=== PATIENT | male | born 1990 | race Caucasian/White ===

== ENCOUNTER 2016-08-03 22:52 | Inpatient (IN) ==
[2016-08-03 23:25] LABS: Bilirubin,Urine Negative (Negative); Blood,Urine Negative (Negative); Clarity,Urine Clear (Clear); Color,Urine Yellow (Yellow); Glucose,Urine (UA) Normal (Normal); Ketones,Urine Negative (Negative); Leukocyte Esterase,Urine Negative (Negative); Nitrite,Urine Negative (Negative); Protein,Urine Negative (Neg-Trace); Specific Gravity,Urine 1.006 (1.010-1.025); Urobilinogen,Urine Normal (Normal)
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
[2016-08-03 23:31] LABS: Amphetamine Screen,Urine Negative ng/mL (Cutoff=1000); Barbiturate Screen,Urine Negative ng/mL (Cutoff=200); Benzodiazepines Screen,Urine Positive ng/mL (Cutoff=200); Cannabinoid Screen,Urine Negative ng/mL (Cutoff = 50); Cocaine Screen,Urine Negative ng/mL (Cutoff= 300); Opiate Screen,Urine Negative ng/mL (Cutoff=300); Phencyclidine Screen,Urine Negative ng/mL (Cutoff=25)
[2016-08-03 23:34] LABS: Basophils % 0.7 %; Eosinophils # 0.1 K/mcL (0.0-0.6); Eosinophils % 3.6 %; Hematocrit 40.4 % (37.5-50.1); Hemoglobin 13.9 g/dL (12.9-16.9); Immature Platelets 8.5 % (1.1-6.1); Lymphocytes # 1.2 K/mcL (0.6-4.6); Lymphocytes % 42.2 %; Mean Corpuscular HGB Conc 34.4 g/dL (31.6-35.5); Mean Corpuscular Hemoglobin 30.5 pg (28.0-33.3); Mean Corpuscular Volume 88.8 fL (83.0-100.0); Mean Platelet Volume 10.9 fL (9.4-12.4); Monocytes # 0.4 K/mcL (0.0-1.3); Monocytes % 12.7 %; Neutrophils # 1.1 K/mcL (1.6-8.9); Platelet Count 149 K/mcL (140-400); Red Blood Count 4.55 M/mcL (4.19-5.50); Red Cell Distribution Width 13.1 % (11.5-14.5); Segmented Neutrophils % 40.8 %
[2016-08-03 23:46] LABS: BUN/Creatinine Ratio 8 (6-26); Blood Urea Nitrogen 7 mg/dL (8-26); Calcium 9.3 mg/dL (8.6-10.8); Carbon Dioxide 26 mEq/L (19-29); Chloride 106 mEq/L (98-109); Glucose 81 mg/dL (70-99); Osmolality,Calculated 291 (280-300); Potassium 4.2 mEq/L (3.5-4.5); Sodium 142 mEq/L (136-145); eGFR For African Americans > 60 (> 60); eGFR For Non-African Americans > 60 (> 60)
[2016-08-03 23:55] LABS: Platelet Estimate Normal (Normal); Reactive Lymphocytes Present (Not Present)
[2016-08-04 00:19] LABS: Ethanol < 10 mg/dL (0-10); Salicylate < 5.0 mg/dL (15-30)
[2016-08-04] MEDS ORDERED: clonazePAM 0.5 MG TABLET PO ONE (02:10)
[2016-08-04 02:17] LABS: Alanine Aminotransferase 30 Units/L (0-55); Albumin 4.1 g/dL (3.5-5.0); Albumin/Globulin Ratio 1.2 (1.1-2.2); Alkaline Phosphatase 80 Units/L (38-126); Aspartate Amino Transferase 23 Units/L (5-34); Bilirubin,Direct 0.1 mg/dL (0.0-0.5); Bilirubin,Indirect 0.2 mg/dL (0.0-1.2); Bilirubin,Total 0.3 mg/dL (0.2-1.2); Globulin 3.5 g/dL (2.4-3.5); Total Protein 7.6 g/dL (6.0-8.3)
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
[2016-08-04] MEDS ORDERED: Gabapentin 400 MG CAPSULE PO SCH (09:15)
[2016-08-04] MEDS ORDERED: Haloperidol Lactate 5 MG/ML VIAL IM PRN (16:06)
[2016-08-04] MEDS ORDERED: traZODone 50 MG TABLET PO PRN ×2 (16:06→16:25)
[2016-08-04] MEDS ORDERED: *HR* LORazepam 2 MG/ML VIAL IM PRN (16:06)
[2016-08-04] MEDS ORDERED: Mag Hydrox/Al Hydrox/Simeth 30 ML UDC PO PRN (16:06)
[2016-08-04] MEDS ORDERED: MOM Conc 10 ML UD.LIQ PO PRN (16:06)
[2016-08-04] MEDS ORDERED: Nicotine 2 MG GUM BC PRN (17:06)
[2016-08-04] MEDS: Gabapentin 400 MG CAPSULE PO SCH ×2 (17:48→21:01)
[2016-08-04] MEDS: hydrOXYzine pamoate 25 MG CAPSULE PO PRN (17:49)
[2016-08-04] MEDS: Acetaminophen 325 MG TABLET PO PRN (18:07)
[2016-08-04] MEDS: Divalproex (12 HR) 500 MG TABLET PO SCH (21:01)
[2016-08-04] MEDS: Mirtazapine 15 MG TABLET PO SCH (21:02)
[2016-08-05] MEDS: Gabapentin 400 MG CAPSULE PO SCH ×4 (08:42→20:59)
[2016-08-05] MEDS: Divalproex (12 HR) 500 MG TABLET PO SCH ×2 (08:42→20:59)
--- NOTE | 2016-08-05 10:22 | Psychiatry History & Physical ---
Date of Encounter: 08/05/16 Time of Encounter: 10:00 History of Present Illness Patient Stated Chief Complaint: Suicidal Medicare Admission Attestation: For traditional Medicare patients the provided hospital inpatient services are reasonable and necessary and in the case of services not specified as inpatient -only under 42 CFR 419.22 (n), that they are appropriately provided as inpatient services in accordance 42 CFR 412.3. For [facility] the patient may reasonably be expected to be discharged or transferred to a hospital within 96 hours after admission to the [facility]. Admitted From: Emergency Dept History of Present Illness: Mr. Martin is a 25 year old male admitted from the emergency room for evaluation and treatment of suicidal ideation and self mutilation patient cut himself on his arm and was feeling suicidal. Patient has a long history of psychiatric treatment for depression and psychosis. [facility] and he is on medication but noncompliant. Also he had a history of dependence on benzodiazepine and muscle relaxant medication. 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 Past Med Surg Social Fam HX - Past Medical History Medical history: non-contributory, other - Past Psychiatric History Psychiatric history: Reports: depression, prior suicide attempt, previous psychiatric hospitalization Family psychiatric history: Unknown Family History of Suicide: Unknown - Past Surgical History Surgical History: orthopedic, other, other - Social History Smoking Status: Current every day smoker Smokeless Tobacco Status: No Alcohol use: occasionally Drug use: prescription drug abuse Medications & Allergies ClonazePAM [Klonopin] 1 mg PO BID 08/04/16 [History] Divalproex (12 HR) [Depakote (12 HR)] 500 mg PO BID 08/04/16 [History] Gabapentin [Neurontin] 800 mg PO QID 08/04/16 [History] HydrOXYzine Pamoate [Hydroxyzine Pamoate] 25 mg PO TID PRN 08/04/16 [History] Mirtazapine [Remeron] 30 mg PO HS 08/04/16 [History] Quetiapine Fumarate [Seroquel] 50 mg PO HS PRN 08/04/16 [History] Allergies cephalexin [From Keflex] Allergy (Verified 06/09/16 04:39) Shakiness flurbiprofen [From Ansaid] Allergy (Verified 06/09/16 04:39) Hives ketorolac [From Toradol] Allergy (Verified 06/09/16 04:39) Nausea tramadol Allergy (Verified 06/09/16 04:39) Itching Review of Systems Psychiatric: Reports: depression, anxiety, suicidal ideation, homicidal ideation Mental Status Exam Patient orientation: Yes Person, Yes Time, Yes Place Level of alertness: Alert Patient appearance: Appropriate, Unkempt, Disheveled, Malodorous, Bizarre, Thin Behavior: calm, cooperative Psychomotor activity: Slowed Eye contact: Avoids Eye Contact Mood description: Depressed, Anxious, Irritable Affect description: congruent with mood, constricted Speech pattern: Normal rate, Normal rhythm, Normal tone, Limited, Impoverished Speech volume: Normal Thought process: Linear, Goal Oriented Thought content: Yes Suicidal ideation, Yes Homicidal ideation, No Overt delusions Perceptual disturbances: No Auditory hallucinations, No Visual hallucinations Attention span: Capable of Focused Attention Memory description: Grossly Intact Patient reliability: Questionable Historian Intelligence estimate: Below Average Judgment: Limited Insight: Partial Results - Vital Signs Vital signs: Temp Pulse Resp BP Pulse Ox 98.8 F 76 16 133/91 97 08/04/16 20:21 08/04/16 20:21 08/04/16 20:21 08/04/16 20:21 08/04/16 08:32 - Labs Labs: Laboratory Last Values WBC 2.8 K/mcL (4.3-11.1) L 08/03/16 23:29 RBC 4.55 M/mcL (4.19-5.50) 08/03/16 23:29 Hgb 13.9 g/dL (12.9-16.9) 08/03/16 23:29 Hct 40.4 % (37.5-50.1) 08/03/16 23:29 MCV 88.8 fL (83.0-100.0) 08/03/16 23:29 MCH 30.5 pg (28.0-33.3) 08/03/16 23:29 MCHC 34.4 g/dL (31.6-35.5) 08/03/16 23:29 RDW 13.1 % (11.5-14.5) 08/03/16 23:29 Plt Count 149 K/mcL (140-400) 08/03/16 23:29 MPV 10.9 fL (9.4-12.4) 08/03/16 23: Immature Gran % 0.0 % (0-4) 08/03/16: Seg Neutrophils % 40.8 % 08/03/16 23: Lymphocytes % 42.2 % 08/03/16: Monocytes % 12.7 % 08/03/16: Eosinophils % 3.6 % 08/03/16: Basophils % 0.7 % 08/03/16: Neutrophils # 1.1 K/mcL (1.6-8.9) L 08/03/16: Lymphocytes # 1.2 K/mcL (0.6-4.6) 08/03/16 Monocytes # 0.4 K/mcL (0.0-1.3) 08/03/16 Eosinophils # 0.1 K/mcL (0.0-0.6) 08/03/16: Basophils # 0.0 K/mcL (0.0-0.2) 08/03/16 Reactive Lymphocytes Present (Not Present) A 08/03/16 Platelet Estimate Normal (Normal) 08/03/16 Immature Plt Fraction 8.5 % (1.1-6.1) H 08/03/16: Sodium 142 mEq/L (136-145) 08/03/16: Potassium 4.2 mEq/L (3.5-4.5) 08/03/16: Chloride 106 mEq/L (98-109) 08/03/16: Carbon Dioxide 26 mEq/L (19-29) 08/03/16: BUN 7 mg/dL (8-26) L 08/03/16: Creatinine 0.88 mg/dL (0.72-1.25) 08/03/16: Est GFR ( Amer) > 60 (> 60) 08/03/16 23: Est GFR (Non-Af Amer) > 60 (> 60) 08/03/16 23: BUN/Creatinine Ratio 8 (6-26) 08/03/16: Glucose 81 mg/dL (70-99) 04/20/17 23:29 Calculated Osmolality 291 (280-300) 08/03/16 23:29 Calcium 9.3 mg/dL (8.6-10.8) 08/03/16 23:29 Total Bilirubin 0.3 mg/dL (0.2-1.2) 08/03/16 23:29 Direct Bilirubin 0.1 mg/dL (0.0-0.5) 08/03/16 23:29 Indirect Bilirubin 0.2 mg/dL (0.0-1.2) 08/03/16 23:29 AST 23 Units/L (5-34) 08/03/16 23:29 ALT 30 Units/L (0-55) 08/03/16 23: Alkaline Phosphatase 80 Units/L (38-126) 08/03/16 23: Serum Total Protein 7.6 g/dL (6.0-8.3) 08/03/16 23: Albumin 4.1 g/dL (3.5-5.0) 08/03/16: Globulin 3.5 g/dL (2.4-3.5) 08/03/16 23: Albumin/Globulin Ratio 1.2 (1.1-2.2) 08/03/16 23:29 Urine Color Yellow (Yellow) 08/03/16 23:19 Urine Clarity Clear (Clear) 08/03/16 23: Urine pH 7.0 pH Units (5.0-8.0) 08/03/16 23:19 Ur Specific [place] 1.006 (1.010-1.025) L 08/03/16 23:19 Urine Protein Negative mg/dL (Neg-Trace) 08/03/16 23: Urine Glucose (UA) Normal mg/dL (Normal) 08/03/16 23:19 Urine Ketones Negative mg/dL (Negative) 08/03/16 23:19 Urine Blood Negative (Negative) 08/03/16 23: Urine Nitrite Negative (Negative) 08/03/16 23: Urine Bilirubin Negative (Negative) 08/03/16 23:19 Urine Urobilinogen Normal mg/dL (Normal) 08/03/16 23:19 Ur Leukocyte Esterase Negative (Negative) 08/03/16 23:19 Salicylates < 5.0 mg/dL (15-30) L 08/03/16 23:29 Urine Opiates Screen Negative ng/mL ([place]=398) 08/03/16 23:19 Acetaminophen 3.0 mcg/mL (10-30) L 08/03/16 23:29 Ur Barbiturates Screen Negative ng/mL (Gfirst=872) 08/03/16 23:19 Ur Phencyclidine Scrn Negative ng/mL (Cutoff=25) 08/03/16 23:19 Ur Amphetamines Screen Negative ng/mL (Dofosl=1513) 08/03/16 23:19 U Benzodiazepines Scrn Positive ng/mL (Pcbcnx=300) H 08/03/16 23:19 Urine Cocaine Screen Negative ng/mL (Cutoff= 300) 08/03/16 23:19 U Marijuana (THC) Screen Negative ng/mL (Cutoff = 50) 08/03/16 23:19 Ethyl Alcohol < 10 mg/dL (0-10) 08/03/16 23:29 Assessment and Plan (1) Persistent mood [affective] disorder, unspecified Current visit: Yes Status: Acute Plan: Admit inpatient for safety and stabilization, Close observation, Suicide Precautions per unit protocol, Encourage participation in unit milieu, Group Therapy, Monitor sleep, Monitor appetite Additional Plan: We will restart medication and check Depakote level. Risks, benefits, side effects, alternatives discussed w/pt: Yes Patient agreeable to treatment: Yes (2) Benzodiazepine dependence Current visit: Yes Status: Acute Plan: Admit inpatient for safety and stabilization, Close observation, Suicide Precautions per unit protocol, Encourage participation in unit milieu, Group Therapy, Monitor sleep, Monitor appetite Additional Plan: Patient was advised to use benzodiazepine on when necessary Ativan as possible he was educated about dependence and long-term side effects benzodiazepine he seemed to be understanding and willing to try. Risks, benefits, side effects, alternatives discussed w/pt: Yes Patient agreeable to treatment: Yes
[2016-08-05] MEDS ORDERED: Methyl Salicylate/Menthol 28 GM TUBE TP PRN (11:18)
[2016-08-05] MEDS: *HR* LORazepam 1 MG TABLET PO PRN ×2 (13:05→19:03)
[2016-08-05] MEDS: Artificial Tears SOLN 15 ML BOTTLE RIGHT EYE SCH ×3 (13:07→20:58)
[2016-08-05] MEDS: Benzocaine 20% 9 GM GEL..GRAM. TP PRN ×3 (13:10→21:01)
[2016-08-05] MEDS: Carisoprodol 350 MG TABLET PO SCH (21:00)
[2016-08-05] MEDS: Mirtazapine 15 MG TABLET PO SCH (22:00)
[2016-08-06] MEDS: Gabapentin 400 MG CAPSULE PO SCH ×4 (08:57→21:08)
[2016-08-06] MEDS: Divalproex (12 HR) 500 MG TABLET PO SCH ×2 (08:57→21:08)
[2016-08-06] MEDS: *HR* LORazepam 1 MG TABLET PO PRN ×3 (08:57→17:20)
[2016-08-06] MEDS: Artificial Tears SOLN 15 ML BOTTLE RIGHT EYE SCH ×4 (08:58→21:07)
[2016-08-06] MEDS: Benzocaine 20% 9 GM GEL..GRAM. TP PRN ×2 (08:58→11:06)
--- NOTE | 2016-08-06 14:20 | Psychiatry Progress Note ---
Date of Encounter: 08/06/16 Time of Encounter: 14:00 Subjective Interval history: Patient is seen for follow-up. Staff report he is compliant with medication, his ADLs are improving. He reports better sleep and occasional anxiety. His initial Depakote level was subtherapeutic he denies suicidal ideation and interested in discharge. I explained to him that we need to check second depakote level and make sure his discharge plans are in place. he is agreeable. Review of Systems Psychiatric: Reports: depression, anxiety, suicidal ideation, homicidal ideation Objective: Exam Patient orientation: Yes Person, Yes Time, Yes Place Level of alertness: Alert Patient appearance: Appropriate, Unkempt, Disheveled, Thin Behavior: calm, cooperative, anxious Psychomotor activity: Normal Eye contact: Fleeting Contact Mood description: Anxious Affect description: congruent with mood, constricted Speech pattern: Normal rate, Normal rhythm, Normal tone Speech volume: Normal Thought process: Linear, Goal Oriented Thought content: No Suicidal ideation, No Homicidal ideation, No Overt delusions Perceptual disturbances: No Auditory hallucinations, No Visual hallucinations Judgment: Fair Insight: Partial Results - Vital Signs Vital Signs: Temp Pulse Resp BP Pulse Ox 99 F 98 16 122/86 97 08/06/16 09:00 08/06/16 09:00 08/06/16 09:00 08/06/16 09:00 08/04/16 08:32 Assessment and Plan (1) Persistent mood [affective] disorder, unspecified Current visit: Yes Status: Acute Risks, benefits, side effects, alternatives discussed w/pt: Yes Patient agreeable to treatment: Yes (2) Benzodiazepine dependence Current visit: Yes Status: Acute Risks, benefits, side effects, alternatives discussed w/pt: Yes Patient agreeable to treatment: Yes Consult Discharge Plan - Plan Referrals: NO,PCP [Primary Care Provider] -
[2016-08-06] MEDS: Acetaminophen 325 MG TABLET PO PRN (17:08)
[2016-08-06] MEDS: hydrOXYzine pamoate 25 MG CAPSULE PO PRN (17:14)
[2016-08-06] MEDS: Carisoprodol 350 MG TABLET PO SCH (21:07)
[2016-08-06] MEDS: Mirtazapine 15 MG TABLET PO SCH (21:07)
[2016-08-07] MEDS: hydrOXYzine pamoate 25 MG CAPSULE PO PRN (06:57)
[2016-08-07] MEDS: Gabapentin 400 MG CAPSULE PO SCH ×2 (08:09→13:16)
[2016-08-07] MEDS: Divalproex (12 HR) 500 MG TABLET PO SCH (08:09)
[2016-08-07] MEDS: *HR* LORazepam 1 MG TABLET PO PRN ×2 (08:09→13:16)
[2016-08-07] MEDS: Artificial Tears SOLN 15 ML BOTTLE RIGHT EYE SCH ×2 (08:10→13:17)
[2016-08-07] MEDS: Benzocaine 20% 9 GM GEL..GRAM. TP PRN (08:12)
[2016-08-07 09:01] VITALS: BP 115/84
--- NOTE | 2016-08-07 10:39 | Discharge Summary ---
Date of Encounter: 08/07/16 Time of Encounter: 10:31 Diagnosis - Discharge Diagnosis (1) Persistent mood [affective] disorder, unspecified Status: Acute (2) Benzodiazepine dependence Status: Acute Medications - Discharge Medications Prescriptions: Divalproex (12 HR) [Depakote (12 HR)] 500 mg PO BID #60 tablet. Gabapentin [Neurontin] 800 mg PO QID #60 tablet HydrOXYzine Pamoate [Hydroxyzine Pamoate] 25 mg PO TID PRN #60 capsule PRN Reason: Anxiety Mirtazapine [Remeron] 30 mg PO HS #30 tablet Quetiapine Fumarate [Seroquel] 50 mg PO HS PRN #30 tablet PRN Reason: Sleep ClonazePAM [Klonopin] 1 mg PO BID 08/04/16 [History] Divalproex (12 HR) [Depakote (12 HR)] 500 mg PO BID #60 tablet. 08/07/16 [Rx] Gabapentin [Neurontin] 800 mg PO QID #60 tablet 08/07/16 [Rx] HydrOXYzine Pamoate [Hydroxyzine Pamoate] 25 mg PO TID PRN #60 capsule 08/07/16 [Rx] Mirtazapine [Remeron] 30 mg PO HS #30 tablet 08/07/16 [Rx] Quetiapine Fumarate [Seroquel] 50 mg PO HS PRN #30 tablet 08/07/16 [Rx] Allergies cephalexin [From Keflex] Allergy (Verified 06/09/16 04:39) Shakiness flurbiprofen [From Ansaid] Allergy (Verified 06/09/16 04:39) Hives ketorolac [From Toradol] Allergy (Verified 06/09/16 04:39) Nausea tramadol Allergy (Verified 06/09/16 04:39) Itching Results Procedures and tests throughout hospitalization: Completed Lab Orders Category Date Time Status Valproate Routine Lab 08/05/16 10:32 Completed Provider Date of admission: 08/04/16 15:23 Primary care physician: PCP NO Discharging clinician: Lennox Tran Assessment and Plan - Patient/Caregiver Discharge Instructions Activity: resume usual activities as tolerated Diet: regular diet - Follow up Plan Follow up with: Bereket Longoria [Outside] - 08/07/16 2:00 pm (The above appointment is with Sonia for counseling. You will also see Nichol psychiatric prescriber, on 08/08/2016 at 2:30PM.) Functional capacity at discharge: independent ambulation Overall status at discharge: Stable Disposition: Home, Self-Care Hospital Course Hospital course: Mr. Martin is a 25 year old male admitted from the emergency room for evaluation and treatment off bipolar disorder and suicidal ideation. For details of admission please see H&P On the unit patient was restarted on his medication he was med seeking, and redirected to take medication as prescribed especially benzodiazepine. Depakote level on admission was below therapeutic level, repeat level was done today and the results are not available at this time. Patient participated minimally in groups or activities and denied any suicidal ideation and he was educated about medication compliance. His discharge plans were completed by the psychotherapist social worker including follow-up appointments this afternoon. Patient is discharged in stable condition, nonsuicidal and future oriented. - Time Spent with Patient Total time spent providing and/or coordinating discharge services: Less than 30 minutes Quality - Multiple Antipsychotics Patient discharged on 2 or more antipsychotic medications: No Procedures - Procedures Procedures: Medication Management, Crisis Stabilization, Supportive Therapy, Group Therapy, Psychoeducational Therapy Mental Status Exam - Mental Status Exam Patient orientation: Yes Person, Yes Time, Yes Place Level of alertness: Alert Patient appearance: Appropriate, Unkempt, Thin Behavior: calm, cooperative, anxious Psychomotor activity: Increased Eye contact: Maintains Eye Contact Mood description: Euthymic/stable Affect description: congruent with mood, constricted Speech pattern: Normal rate, Normal rhythm, Normal tone, Limited Speech Volume: Normal Thought process: Linear, Goal Oriented Thought Content: No Suicidal ideation, No Homicidal ideation, No Overt delusions Perceptual Disturbances: No Auditory hallucinations, No Visual hallucinations Judgment: Limited Insight: Partial
== END 2016-08-07 13:45 | disposition home or self-care (01) | DRG 753 ==
LOC: EMEROO 22:52 → 1ANU 08-04 15:23
PROVIDERS: ADMIT Psychiatry & Neurology Psychiatry; ATTEND Psychiatry & Neurology Psychiatry

== ENCOUNTER 2016-10-23 14:44 | Inpatient (IN) ==
[2016-10-23 16:01] LABS: Bilirubin,Urine Negative (Negative); Blood,Urine Negative (Negative); Clarity,Urine Clear (Clear); Color,Urine Yellow (Yellow); Glucose,Urine (UA) Normal (Normal); Ketones,Urine Negative (Negative); Leukocyte Esterase,Urine Negative (Negative); Nitrite,Urine Negative (Negative); PH,Urine 7.5 pH Units (5.0-8.0); Protein,Urine Negative (Neg-Trace); Specific Gravity,Urine 1.007 (1.010-1.025); Urobilinogen,Urine Normal (Normal)
--- NOTE | 2016-10-23 16:05 | Emergency Department Note ---
Disposition Clinical Impression: Acute anxiety, Suicidal ideations Disposition: Still a Patient Referrals: NO,PCP [Primary Care Provider] - Forms: ED Satisfaction Letter Time of Disposition: 22:53 Psych HPI - General Chief Complaint: ED Psychiatric Symptoms Stated Complaint: SI/anxiety Time Seen by Provider: 10/23/16 15:22 Source: patient Mode of arrival: EMS Limitations: no limitations Nursing Notes Reviewed: Yes Vital Signs Reviewed: Yes - History of Present Illness HPI Narrative: Patient is a 25-year-old male presents to the emergency Department by squad for suicidal ideation with a past medical history of both and including suicidal attempts by cutting his forearms. The patient states he has a baseline anxiety however today his anxiety is prior than normal and he also admits to not taking his psychiatric medications today. On with this increased anxiety he also has suicidal ideation today. He does not have a plan. He admits to taking narcotics yesterday. Pt complaint: suicidal ideation, anxiety If medical clearance, reason: psychiatric condition Onset (ago): Just HOUSESM[employer] Duration: constant History of similar episodes: Yes (Patient has a history of suicidal ideation and panic attacks) Improves with: therapy Worsens with: none Context: not taking psychiatric medications Alleged intoxication: No Associated Psychiatric Symptoms: depression, suicidal ideation, anxiety Associated symptoms: Reports: denies other symptoms. Denies: headache, shortness of breath, nausea, vomiting Traumatic symptoms: denies traumatic injury Treatments prior to arrival: none Self harm or harm to others: admits thoughts of self harm Details of Plan: Patient states he does not currently have a plan for suicide however he is having suicidal thoughts. - Related Data Home Medications Medication Instructions Recorded Confirmed clonazePAM [Klonopin] 1 mg PO BID 08/04/16 Previous Rx's Medication Instructions Recorded Divalproex (12 HR) [Depakote (12 500 mg PO BID #60 tablet. 08/07/16 HR)] Gabapentin [Neurontin] 800 mg PO QID #60 tablet 08/07/16 Mirtazapine [Remeron] 30 mg PO HS #30 tablet 08/07/16 Quetiapine Fumarate [Seroquel] 50 mg PO HS PRN #30 tablet 08/07/16 hydrOXYzine pamoate [Hydroxyzine 25 mg PO TID PRN #60 capsule 08/07/16 Pamoate] Allergies Allergy/AdvReac Type Severity Reaction Status Date / Time cephalexin [From Keflex] Allergy Shakiness Verified 06/09/16 04:39 flurbiprofen [From Ansaid] Allergy Hives Verified 06/09/16 04:39 ketorolac [From Toradol] Allergy Nausea Verified 06/09/16 04:39 tramadol Allergy Itching Verified 06/09/16 04:39 All systems ED: reviewed and negative except as stated. Psychiatric: Reports: anxiety, depression, suicidal thoughts. Denies: homicidal thoughts Past Medical History - Past Medical History Medical history: Reports: non-contributory, other Surgical history: Reports: orthopedic, other, other Psychiatric history: Reports: depression, prior suicide attempt, previous psychiatric hospitalization - Social History Smoking Status: Current every day smoker Smokeless Tobacco Status: No Alcohol use: Reports: occasionally Drug use: Reports: prescription drug abuse Physical Exam Patient is a 25-year-old male presents the ED with increased anxiety today and also suicidal ideation, however he does not have a plan. His physical exam is normal except as stated. - General Limitations: no limitations General appearance: alert, in no apparent distress, anxious - Head Head exam: atraumatic, normocephalic, normal inspection - Eye Eye exam: Present: PERRL, other (Pupils are dilated at 4 mm bilaterally.) - ENT ENT exam: mucous membranes moist - Neck Neck exam: Present: normal inspection - Chest Chest inspection: Present: normal inspection, symmetric chest wall rise - Respiratory Respiratory exam: Present: normal lung sounds bilaterally. Absent: wheezes - Cardiovascular Cardiovascular exam: Present: regular rate, normal rhythm, normal heart sounds - Abdominal Exam Abdominal exam: Present: soft, Non-Tender, normal bowel sounds. Absent: tenderness, guarding, rebound - Extremities Exam Extremities exam: Present: full ROM, other (Patient has cutting scars from previous attempts of self-harm on bilateral dorsal forearms.). Absent: tenderness - Neurological Exam Neurological exam: Present: alert, oriented X3 - Psychiatric Psychiatric exam: Present: normal affect, anxious, suicidal ideation. Absent: homicidal ideation - Skin Skin exam: Present: warm, dry, intact Course Course Narrative: Patient is a 25-year-old male with past medical history of suicidal ideation/ attempt and anxiety. Patient presents today with the complaint of increased anxiety and suicidal ideation without a plan. He has not taken his psychiatric medications today. The plan is to medically clear the patient for psychiatric. The patient is agreeable with the plan. He is resting comfortably in his bed. - Reevaluation(s) Reevaluation #1: Still attempting to place patient. Signed out to stock selector. Time: 22:53 Vital Signs Temperature 98.3 F 10/23/16 15:13 Pulse Rate 73 10/23/16 15:13 Respiratory Rate 16 10/23/16 15:13 Blood Pressure 143/84 10/23/16 15:13 O2 Sat by Pulse Oximetry 100 10/23/16 15:13 Temperature 98.3 F 10/23/16 15:13 Pulse Rate 78 10/23/16 15:45 Respiratory Rate 16 10/23/16 15:45 Blood Pressure 132/78 10/23/16 15:45 O2 Sat by Pulse Oximetry 100 10/23/16 15:45 Oxygen Delivery Oxygen Delivery Room Air Psych - Differential Diagnosis Likely: suicidal ideation, depression, acute anxiety state - Medical Records Medical records reviewed: Yes I reviewed the patient's medical records. - Lab Data Result diagrams: 10/23/16 15:52 10/23/16 15:52 Lab Results 10/23/16 10/23/16 10/23/16 Range/Units 15:45 15:45 15:52 WBC 5.0 (4.3-11.1) K/mcL RBC 4.88 (4.19-5.50) M/mcL Hgb 14.6 (12.9-16.9) g/dL Hct 43.4 (37.5-50.1) % MCV 88.9 (83.0-100.0) fL MCH 29.9 (28.0-33.3) pg MCHC 33.6 (31.6-35.5) g/dL RDW 12.8 (11.5-14.5) % Plt Count 190 (140-400) K/mcL MPV 11.0 (9.4-12.4) fL Immature Gran % 0.2 (0-4) % Seg Neutrophils % 59.2 % Lymphocytes % 25.9 % Monocytes % 13.3 % Eosinophils % 1.0 % Basophils % 0.4 % Neutrophils # 3.0 (1.6-8.9) K/mcL Lymphocytes # 1.3 (0.6-4.6) K/mcL Monocytes # 0.7 (0.0-1.3) K/mcL Eosinophils # 0.1 (0.0-0.6) K/mcL Basophils # 0.0 (0.0-0.2) K/mcL Sodium (136-145) mEq/L Potassium (3.5-4.5) mEq/L Chloride (98-109) mEq/L Carbon Dioxide (19-29) mEq/L BUN (8-26) mg/dL Creatinine (0.72-1.25) mg/dL Est GFR ( Amer) (> 60) Est GFR (Non-Af Amer) (> 60) BUN/Creatinine Ratio (6-26) Glucose (70-99) mg/dL Calculated Osmolality (280-300) Calcium (8.6-10.8) mg/dL Urine Color Yellow (Yellow) Urine Clarity Clear (Clear) Urine pH 7.5 (5.0-8.0) pH Units Ur Specific [place] 1.007 L (1.010-1.025) Urine Protein Negative (Neg-Trace) mg/dL Urine Glucose (UA) Normal (Normal) mg/dL Urine Ketones Negative (Negative) mg/dL Urine Blood Negative (Negative) Urine Nitrite Negative (Negative) Urine Bilirubin Negative (Negative) Urine Urobilinogen Normal (Normal) mg/dL Ur Leukocyte Esterase Negative (Negative) Salicylates (15-30) mg/dL Urine Opiates Screen Negative (Iplnqx=229) ng/mL Acetaminophen (10-30) mcg/mL Ur Barbiturates Screen Negative (Aavbdm=259) ng/mL Ur Phencyclidine Scrn Negative (Cutoff=25) ng/mL Ur Amphetamines Screen Negative (Lclhew=1523) ng/mL U Benzodiazepines Scrn Negative (Bpabuz=607) ng/mL Urine Cocaine Screen Negative (Cutoff= 300) ng/mL U Marijuana (THC) Screen Negative (Cutoff = 50) ng/mL Ethyl Alcohol (0-10) mg/dL 10/23/16 Range/Units 15:52 WBC (4.3-11.1) K/mcL RBC (4.19-5.50) M/mcL Hgb (12.9-16.9) g/dL Hct (37.5-50.1) % MCV (83.0-100.0) fL MCH (28.0-33.3) pg MCHC (31.6-35.5) g/dL RDW (11.5-14.5) % Plt Count (140-400) K/mcL MPV (9.4-12.4) fL Immature Gran % (0-4) % Seg Neutrophils % % Lymphocytes % % Monocytes % % Eosinophils % % Basophils % % Neutrophils # (1.6-8.9) K/mcL Lymphocytes # (0.6-4.6) K/mcL Monocytes # (0.0-1.3) K/mcL Eosinophils # (0.0-0.6) K/mcL Basophils # (0.0-0.2) K/mcL Sodium 141 (136-145) mEq/L Potassium 4.0 (3.5-4.5) mEq/L Chloride 107 (98-109) mEq/L Carbon Dioxide 26 (19-29) mEq/L BUN 8 (8-26) mg/dL Creatinine 0.85 (0.72-1.25) mg/dL Est GFR ( Amer) > 60 (> 60) Est GFR (Non-Af Amer) > 60 (> 60) BUN/Creatinine Ratio 9 (6-26) Glucose 95 (70-99) mg/dL Calculated Osmolality 290 (280-300) Calcium 9.8 (8.6-10.8) mg/dL Urine Color (Yellow) Urine Clarity (Clear) Urine pH (5.0-8.0) pH Units Ur Specific [place] (1.010-1.025) Urine Protein (Neg-Trace) mg/dL Urine Glucose (UA) (Normal) mg/dL Urine Ketones (Negative) mg/dL Urine Blood (Negative) Urine Nitrite (Negative) Urine Bilirubin (Negative) Urine Urobilinogen (Normal) mg/dL Ur Leukocyte Esterase (Negative) Salicylates < 5.0 L (15-30) mg/dL Urine Opiates Screen (Mgqihf=448) ng/mL Acetaminophen < 1.0 L (10-30) mcg/mL Ur Barbiturates Screen (Paybiv=361) ng/mL Ur Phencyclidine Scrn (Cutoff=25) ng/mL Ur Amphetamines Screen (Pjqotc=3300) ng/mL U Benzodiazepines Scrn (Tyeorj=394) ng/mL Urine Cocaine Screen (Cutoff= 300) ng/mL U Marijuana (THC) Screen (Cutoff = 50) ng/mL Ethyl Alcohol < 10 (0-10) mg/dL Psychiatric Medical Clearance - Medical Clearance Checklist Medical History: No Social History Section defined Current Vitals: Last Vital Signs Temp 98.3 F 10/23/16 15:13 Pulse 78 10/23/16 15:45 Resp 16 10/23/16 15:45 BP 132/78 10/23/16 15:45 Pulse Ox 100 10/23/16 15:45 Psychiatric Lab Panel: Drug Levels and Toxicity 10/23/16 10/23/16 15:45 15:52 Urine Opiates Screen Negative Acetaminophen < 1.0 L Ur Barbiturates Screen Negative Ur Phencyclidine Scrn Negative Ur Amphetamines Screen Negative U Benzodiazepines Scrn Negative Urine Cocaine Screen Negative U Marijuana (THC) Screen Negative Ethyl Alcohol < 10 Abnormal Labs: Abnormal lab results Ur Specific [place] 1.007 (1.010-1.025) L 10/23/16 15:45 Salicylates < 5.0 mg/dL (15-30) L 10/23/16 15:52 Acetaminophen < 1.0 mcg/mL (10-30) L 10/23/16 15:52 Attestation Statement - Attestation Attestation: I examined this patient and my medical decision-making was reviewed with the [employer] CONSULTANT/PA/Advanced Practice Nurse/Resident Physician. I agree with the documented findings, disposition and treatment plan as described except to the extent set forth below. Patient to the emergency department the chief complaint of suicidal thoughts. He states than increasing anxiety since he was taken off his benzodiazepines. States the Vistaril is making him worse. He is now content planning suicide. No specific plan. Exam shows him sitting on the bed in no distress. Oriented. Plan. Medical clearance and 1A evaluation. Patient evaluated and they feel is appropriate for admission. No beds available here so they are attempting to place him.
[2016-10-23 16:07] LABS: Amphetamine Screen,Urine Negative ng/mL (Cutoff=1000); Barbiturate Screen,Urine Negative ng/mL (Cutoff=200); Benzodiazepines Screen,Urine Negative ng/mL (Cutoff=200); Cannabinoid Screen,Urine Negative ng/mL (Cutoff = 50); Cocaine Screen,Urine Negative ng/mL (Cutoff= 300); Opiate Screen,Urine Negative ng/mL (Cutoff=300); Phencyclidine Screen,Urine Negative ng/mL (Cutoff=25)
[2016-10-23 16:12] LABS: Basophils % 0.4 %; Eosinophils # 0.1 K/mcL (0.0-0.6); Hematocrit 43.4 % (37.5-50.1); Hemoglobin 14.6 g/dL (12.9-16.9); Immature Granulocytes % 0.2 % (0-4); Lymphocytes # 1.3 K/mcL (0.6-4.6); Lymphocytes % 25.9 %; Mean Corpuscular HGB Conc 33.6 g/dL (31.6-35.5); Mean Corpuscular Hemoglobin 29.9 pg (28.0-33.3); Mean Corpuscular Volume 88.9 fL (83.0-100.0); Monocytes # 0.7 K/mcL (0.0-1.3); Monocytes % 13.3 %; Platelet Count 190 K/mcL (140-400); Red Blood Count 4.88 M/mcL (4.19-5.50); Red Cell Distribution Width 12.8 % (11.5-14.5); Segmented Neutrophils % 59.2 %
[2016-10-23 16:34] LABS: BUN/Creatinine Ratio 9 (6-26); Blood Urea Nitrogen 8 mg/dL (8-26); Calcium 9.8 mg/dL (8.6-10.8); Carbon Dioxide 26 mEq/L (19-29); Chloride 107 mEq/L (98-109); Glucose 95 mg/dL (70-99); Osmolality,Calculated 290 (280-300); Sodium 141 mEq/L (136-145); eGFR For African Americans > 60 (> 60); eGFR For Non-African Americans > 60 (> 60)
[2016-10-23 16:35] LABS: Acetaminophen < 1.0 mcg/mL (10-30); Ethanol < 10 mg/dL (0-10); Salicylate < 5.0 mg/dL (15-30)
[2016-10-23] MEDS ORDERED: Gabapentin 400 MG CAPSULE PO STA (20:24)
[2016-10-24 01:24] LABS: Alanine Aminotransferase 32 Units/L (0-55); Aspartate Amino Transferase 23 Units/L (5-34)
[2016-10-24] MEDS ORDERED: Gabapentin 400 MG CAPSULE PO STA (08:18)
[2016-10-24] MEDS ORDERED: hydrOXYzine pamoate 25 MG CAPSULE PO STA (10:35)
--- NOTE | 2016-10-24 14:41 | Emergency Department Note ---
Disposition Clinical Impression: Acute anxiety, Suicidal ideations Disposition: Admitted As Inpatient Referrals: NO,PCP [Primary Care Provider] - Forms: ED Satisfaction Letter Time of Disposition: 14:41 Psych HPI - General Chief Complaint: ED Psychiatric Symptoms Stated Complaint: SI/anxiety Time Seen by Provider: 10/23/16 15:22 Source: patient Mode of arrival: EMS - History of Present Illness Duration: constant Improves with: therapy Worsens with: none Associated symptoms: Reports: denies other symptoms. Denies: headache, shortness of breath, nausea, vomiting Treatments prior to arrival: none - Related Data Home Medications Medication Instructions Recorded Confirmed clonazePAM [Klonopin] 1 mg PO BID 08/04/16 10/24/16 Previous Rx's Medication Instructions Recorded Divalproex (12 HR) [Depakote (12 500 mg PO BID #60 tablet. 08/07/16 HR)] Gabapentin [Neurontin] 800 mg PO QID #60 tablet 08/07/16 Mirtazapine [Remeron] 30 mg PO HS #30 tablet 08/07/16 Quetiapine Fumarate [Seroquel] 50 mg PO HS PRN #30 tablet 08/07/16 hydrOXYzine pamoate [Hydroxyzine 25 mg PO TID PRN #60 capsule 08/07/16 Pamoate] Allergies Allergy/AdvReac Type Severity Reaction Status Date / Time cephalexin [From Keflex] Allergy Shakiness Verified 06/09/16 04:39 flurbiprofen [From Ansaid] Allergy Hives Verified 06/09/16 04:39 ketorolac [From Toradol] Allergy Nausea Verified 06/09/16 04:39 tramadol Allergy Itching Verified 06/09/16 04:39 Psychiatric: Reports: anxiety, depression, suicidal thoughts. Denies: homicidal thoughts Past Medical History - Past Medical History Medical history: Reports: non-contributory, other Surgical history: Reports: orthopedic, other, other Psychiatric history: Reports: depression, prior suicide attempt, previous psychiatric hospitalization - Social History Smoking Status: Current every day smoker Smokeless Tobacco Status: No Alcohol use: Reports: occasionally Drug use: Reports: prescription drug abuse Physical Exam - General Limitations: no limitations General appearance: alert, in no apparent distress, anxious Course - Reevaluation(s) Reevaluation #1: Patient with suicidal ideation will be admitted to Id. Time: 14:42 - Consultations Consultation #1: Discussed with Ia who will admit the patient Time: 14:41 Vital Signs Temperature 98.3 F 10/23/16 15:13 Pulse Rate 73 10/23/16 15:13 Respiratory Rate 16 10/23/16 15:13 Blood Pressure 143/84 10/23/16 15:13 O2 Sat by Pulse Oximetry 100 10/23/16 15:13 Temperature 98.3 F 10/23/16 15:13 Pulse Rate 85 10/24/16 10:57 Respiratory Rate 18 10/24/16 10:57 Blood Pressure 125/79 10/24/16 10:57 O2 Sat by Pulse Oximetry 99 10/24/16 10:57 Oxygen Delivery Oxygen Delivery Room Air Psych - Lab Data Result diagrams: 10/23/16 15:52 10/23/16 15:52 Lab Results 10/23/16 10/23/16 10/23/16 Range/Units 15:45 15:45 15:52 WBC 5.0 (4.3-11.1) K/mcL RBC 4.88 (4.19-5.50) M/mcL Hgb 14.6 (12.9-16.9) g/dL Hct 43.4 (37.5-50.1) % MCV 88.9 (83.0-100.0) fL MCH 29.9 (28.0-33.3) pg MCHC 33.6 (31.6-35.5) g/dL RDW 12.8 (11.5-14.5) % Plt Count 190 (140-400) K/mcL MPV 11.0 (9.4-12.4) fL Immature Gran % 0.2 (0-4) % Seg Neutrophils % 59.2 % Lymphocytes % 25.9 % Monocytes % 13.3 % Eosinophils % 1.0 % Basophils % 0.4 % Neutrophils # 3.0 (1.6-8.9) K/mcL Lymphocytes # 1.3 (0.6-4.6) K/mcL Monocytes # 0.7 (0.0-1.3) K/mcL Eosinophils # 0.1 (0.0-0.6) K/mcL Basophils # 0.0 (0.0-0.2) K/mcL Sodium (136-145) mEq/L Potassium (3.5-4.5) mEq/L Chloride (98-109) mEq/L Carbon Dioxide (19-29) mEq/L BUN (8-26) mg/dL Creatinine (0.72-1.25) mg/dL Est GFR ( Amer) (> 60) Est GFR (Non-Af Amer) (> 60) BUN/Creatinine Ratio (6-26) Glucose (70-99) mg/dL Calculated Osmolality (280-300) Calcium (8.6-10.8) mg/dL AST (5-34) Units/L ALT (0-55) Units/L Urine Color Yellow (Yellow) Urine Clarity Clear (Clear) Urine pH 7.5 (5.0-8.0) pH Units Ur Specific [place] 1.007 L (1.010-1.025) Urine Protein Negative (Neg-Trace) mg/dL Urine Glucose (UA) Normal (Normal) mg/dL Urine Ketones Negative (Negative) mg/dL Urine Blood Negative (Negative) Urine Nitrite Negative (Negative) Urine Bilirubin Negative (Negative) Urine Urobilinogen Normal (Normal) mg/dL Ur Leukocyte Esterase Negative (Negative) Salicylates (15-30) mg/dL Urine Opiates Screen Negative (Eemsrl=441) ng/mL Acetaminophen (10-30) mcg/mL Ur Barbiturates Screen Negative (Emcgvh=696) ng/mL Ur Phencyclidine Scrn Negative (Cutoff=25) ng/mL Ur Amphetamines Screen Negative (Wkxhen=3942) ng/mL U Benzodiazepines Scrn Negative (Vbgubl=739) ng/mL Urine Cocaine Screen Negative (Cutoff= 300) ng/mL U Marijuana (THC) Screen Negative (Cutoff = 50) ng/mL Ethyl Alcohol (0-10) mg/dL 10/23/16 10/24/16 Range/Units 15:52 01:04 WBC (4.3-11.1) K/mcL RBC (4.19-5.50) M/mcL Hgb (12.9-16.9) g/dL Hct (37.5-50.1) % MCV (83.0-100.0) fL MCH (28.0-33.3) pg MCHC (31.6-35.5) g/dL RDW (11.5-14.5) % Plt Count (140-400) K/mcL MPV (9.4-12.4) fL Immature Gran % (0-4) % Seg Neutrophils % % Lymphocytes % % Monocytes % % Eosinophils % % Basophils % % Neutrophils # (1.6-8.9) K/mcL Lymphocytes # (0.6-4.6) K/mcL Monocytes # (0.0-1.3) K/mcL Eosinophils # (0.0-0.6) K/mcL Basophils # (0.0-0.2) K/mcL Sodium 141 (136-145) mEq/L Potassium 4.0 (3.5-4.5) mEq/L Chloride 107 (98-109) mEq/L Carbon Dioxide 26 (19-29) mEq/L BUN 8 (8-26) mg/dL Creatinine 0.85 (0.72-1.25) mg/dL Est GFR ( Amer) > 60 (> 60) Est GFR (Non-Af Amer) > 60 (> 60) BUN/Creatinine Ratio 9 (6-26) Glucose 95 (70-99) mg/dL Calculated Osmolality 290 (280-300) Calcium 9.8 (8.6-10.8) mg/dL AST 23 (5-34) Units/L ALT 32 (0-55) Units/L Urine Color (Yellow) Urine Clarity (Clear) Urine pH (5.0-8.0) pH Units Ur Specific [place] (1.010-1.025) Urine Protein (Neg-Trace) mg/dL Urine Glucose (UA) (Normal) mg/dL Urine Ketones (Negative) mg/dL Urine Blood (Negative) Urine Nitrite (Negative) Urine Bilirubin (Negative) Urine Urobilinogen (Normal) mg/dL Ur Leukocyte Esterase (Negative) Salicylates < 5.0 L (15-30) mg/dL Urine Opiates Screen (Amqhkx=817) ng/mL Acetaminophen < 1.0 L (10-30) mcg/mL Ur Barbiturates Screen (Ilhukj=072) ng/mL Ur Phencyclidine Scrn (Cutoff=25) ng/mL Ur Amphetamines Screen (Gmzitp=5488) ng/mL U Benzodiazepines Scrn (Wqisrn=383) ng/mL Urine Cocaine Screen (Cutoff= 300) ng/mL U Marijuana (THC) Screen (Cutoff = 50) ng/mL Ethyl Alcohol < 10 (0-10) mg/dL Psychiatric Medical Clearance - Medical Clearance Checklist Does the patient have a NEW psychiatric condition?: No Any abnormalities indicating possible medical illness?: No Any history of medical issues?: No Medical History: No Social History Section defined Any abnormal vital signs prior to transfer?: No Current Vitals: Last Vital Signs Temp 98.3 F 10/23/16 15:13 Pulse 85 10/24/16 10:57 Resp 18 10/24/16 10:57 BP 125/79 10/24/16 10:57 Pulse Ox 99 10/24/16 10:57 Is the patient intoxicated or cognitively impaired?: No Psychiatric Lab Panel: Drug Levels and Toxicity 10/23/16 10/23/16 15:45 15:52 Urine Opiates Screen Negative Acetaminophen < 1.0 L Ur Barbiturates Screen Negative Ur Phencyclidine Scrn Negative Ur Amphetamines Screen Negative U Benzodiazepines Scrn Negative Urine Cocaine Screen Negative U Marijuana (THC) Screen Negative Ethyl Alcohol < 10 Any abnormalities on the physical exam?: No Any abnormal labs?: No Abnormal Labs: Abnormal lab results Ur Specific [place] 1.007 (1.010-1.025) L 10/23/16 15:45 Salicylates < 5.0 mg/dL (15-30) L 10/23/16 15:52 Acetaminophen < 1.0 mcg/mL (10-30) L 10/23/16 15:52 Does the patient require durable medical equiptment?: No Is the patient ambulatory?: Yes Is the patient a fall risk?: No Has the patient been medically cleared?: Yes Any acute medical condition require Tx prior to transfer?: No Statement of Medical Clearance: I have evaluated the patient, reviewed diagnostic information, and certify that the patient's medical condition is sufficiently stable that transfer to the psychiatric unit does not pose a significant risk of deterioration.
[2016-10-24] MEDS ORDERED: Haloperidol Lactate 5 MG/ML VIAL IM PRN (16:04)
[2016-10-24] MEDS ORDERED: traZODone 50 MG TABLET PO PRN (16:04)
[2016-10-24] MEDS ORDERED: MOM Conc 10 ML UD.LIQ PO PRN (16:04)
[2016-10-24] MEDS ORDERED: Acetaminophen 325 MG TABLET PO PRN (16:04)
[2016-10-24] MEDS ORDERED: Mag Hydrox/Al Hydrox/Simeth 30 ML UDC PO PRN (16:04)
[2016-10-24] MEDS ORDERED: hydrOXYzine pamoate 25 MG CAPSULE PO PRN (16:07)
[2016-10-24] MEDS: Gabapentin 400 MG CAPSULE PO SCH ×2 (16:25→20:26)
[2016-10-24] MEDS: Mirtazapine 15 MG TABLET PO SCH (20:31)
[2016-10-25] MEDS: tiZANidine 4 MG TABLET PO SCH (08:35)
[2016-10-25] MEDS: Gabapentin 400 MG CAPSULE PO SCH ×4 (08:36→20:17)
[2016-10-25] MEDS: Nicotine 14 MG PATCH.TD24 TD SCH (08:36)
--- NOTE | 2016-10-25 12:19 | Psychiatry History & Physical ---
Date of Encounter: 10/25/16 Time of Encounter: 12:12 History of Present Illness Patient Stated Chief Complaint: suicidal Medicare Admission Attestation: For traditional Medicare patients the provided hospital inpatient services are reasonable and necessary and in the case of services not specified as inpatient -only under 42 CFR 419.22 (n), that they are appropriately provided as inpatient services in accordance 42 CFR 412.3. For Critical Access Hospital the patient may reasonably be expected to be discharged or transferred to a hospital within 96 hours after admission to the Critical Access Hospital. Admitted From: Home Plans for Post Hospital Care: Home History of Present Illness: Mr. Martin is a 25 year old male who was admitted secondary to anxiety and SI. Multiple prior admissions for same presentation. Benzo seeking but cooperative when told these would not be prescribed. Also has a history of selling them when prescribed to buy pain pills for his back. Denies any relief from Buspar, Vistaril, and Seroquel. Claims these medications cause him to have panic attacks. Currently prescribed Celexa but he is only taking 10mg. Willing to increase dose. Discussed other options but he is resistant to anything that does not have an immediate effect. Has not tried any antipsychotics beyond Seroquel. Most of these meds have anti anxiety properties so he might get some relief from them. Discussed Zyprexa. He is very underweight and he does not have much of an appetite so Zyprexa may help with these issues as well. Appears to have some cognitive deficits but staff who are familiar with him say he is savvy when it comes to getting what he want/ needs. Past Med Surg Social Fam HX - Past Medical History Medical history: non-contributory, other - Past Psychiatric History Psychiatric history: Reports: anxiety, depression, prior suicide attempt, previous psychiatric hospitalization Family psychiatric history: Unknown Family History of Suicide: Unknown - Past Surgical History Surgical History: orthopedic, other, other - Social History Smoking Status: Current every day smoker Smokeless Tobacco Status: No Alcohol use: occasionally Drug use: prescription drug abuse Medications & Allergies Gabapentin [Neurontin] 800 mg PO QID #60 tablet 08/07/16 [Rx] Mirtazapine [Remeron] 30 mg PO HS #30 tablet 08/07/16 [Rx] Quetiapine Fumarate [Seroquel] 50 mg PO HS PRN #30 tablet 08/07/16 [Rx] Citalopram Hydrobromide [Citalopram HBr] 10 mg PO DAILY 10/24/16 [History] Tizanidine HCl 2 mg PO DAILY 10/24/16 [History] hydrOXYzine pamoate [Hydroxyzine Pamoate] 50 mg PO TID PRN 10/24/16 [History] Allergies cephalexin [From Keflex] Allergy (Verified 06/09/16 04:39) Shakiness flurbiprofen [From Ansaid] Allergy (Verified 06/09/16 04:39) Hives ketorolac [From Toradol] Allergy (Verified 06/09/16 04:39) Nausea tramadol Allergy (Verified 06/09/16 04:39) Itching Review of Systems Constitutional: Denies: fever, chills, weakness, weight change Eyes: Denies: eye pain, vision change Ears, Nose, Throat: Denies: ear pain, throat pain, dental pain, hearing loss, congestion Cardiovascular: Denies: chest pain, palpitations, dyspnea on exertion Respiratory: Denies: cough, dyspnea, wheezes Gastrointestinal: Denies: abdominal pain, nausea, vomiting, diarrhea, constipation Genitourinary male: Denies: urgency, dysuria, frequency, genital lesions Genitourinary female: Denies: urgency, dysuria, frequency, abnormal menses, dyspareunia Musculoskeletal: Reports: back pain. Denies: joint swelling, joint pain Integumentary: Denies: rash, lesions, pruritus Neurological: Denies: headache, weakness, numbness, memory loss Endocrine: Denies: fatigue, heat or cold intolerance Hematologic/Lymphatic: Denies: easy bruising, lymphadenopathy Allergic/Immunologic: Denies: urticaria, itchy eyes Mental Status Exam Patient orientation: Yes Person, Yes Time, Yes Place Level of alertness: Alert Patient appearance: Thin Behavior: anxious Psychomotor activity: Increased Eye contact: Maintains Eye Contact Mood description: Anxious Affect description: congruent with mood Speech pattern: Normal rate, Normal rhythm, Normal tone Speech volume: Normal Thought process: Intact Thought content: Yes Suicidal ideation Perceptual disturbances: No Auditory hallucinations, No Visual hallucinations Attention span: Capable of Focused Attention Memory description: Grossly Intact Patient reliability: Reliable Historian Intelligence estimate: Average Judgment: Limited Insight: Partial Exam - HEENT Head exam IM: Present: atraumatic Eye exam IM: Present: EOMI ENT exam IM: Present: mucous membranes moist - Neurological Neurological exam IM: Present: alert, oriented X3 - Respiratory Respiratory exam IM: Present: CTAB - GI/Abdominal GI/Abdominal exam IM: Present: normal bowel sounds - Extremities Extremities exam IM: Present: full ROM - Skin Skin exam IM: Present: normal color Results - Vital Signs Vital signs: Temp Pulse Resp BP Pulse Ox 98.6 F 78 18 115/75 99 10/25/16 09:00 10/25/16 09:00 10/25/16 09:00 10/25/16 09:00 10/24/16 10:57 - Labs Labs: Laboratory Last Values WBC 5.0 K/mcL (4.3-11.1) 10/23/16 15:52 RBC 4.88 M/mcL (4.19-5.50) 10/23/16 15:52 Hgb 14.6 g/dL (12.9-16.9) 10/23/16 15:52 Hct 43.4 % (37.5-50.1) 10/23/16 15:52 MCV 88.9 fL (83.0-100.0) 10/23/16 15:52 MCH 29.9 pg (28.0-33.3) 10/23/16 15:52 MCHC 33.6 g/dL (31.6-35.5) 10/23/16 15:52 RDW 12.8 % (11.5-14.5) 10/23/16 15:52 Plt Count 190 K/mcL (140-400) 10/23/16 15:52 MPV 11.0 fL (9.4-12.4) 10/23/16 15:52 Immature Gran % 0.2 % (0-4) 10/23/16 15:52 Seg Neutrophils % 59.2 % 10/23/16 15:52 Lymphocytes % 25.9 % 10/23/16 15:52 Monocytes % 13.3 % 10/23/16 15:52 Eosinophils % 1.0 % 10/23/16 15:52 Basophils % 0.4 % 10/23/16 15:52 Neutrophils # 3.0 K/mcL (1.6-8.9) 10/23/16 15:52 Lymphocytes # 1.3 K/mcL (0.6-4.6) 10/23/16 15:52 Monocytes # 0.7 K/mcL (0.0-1.3) 10/23/16 15:52 Eosinophils # 0.1 K/mcL (0.0-0.6) 10/23/16 15:52 Basophils # 0.0 K/mcL (0.0-0.2) 10/23/16 15:52 Sodium 141 mEq/L (136-145) 10/23/16 15:52 Potassium 4.0 mEq/L (3.5-4.5) 10/23/16 15:52 Chloride 107 mEq/L (98-109) 10/23/16 15:52 Carbon Dioxide 26 mEq/L (19-29) 10/23/16 15:52 BUN 8 mg/dL (8-26) 10/23/16 15:52 Creatinine 0.85 mg/dL (0.72-1.25) 10/23/16 15:52 Est GFR ( Amer) > 60 (> 60) 10/23/16 15:52 Est GFR (Non-Af Amer) > 60 (> 60) 10/23/16 15:52 BUN/Creatinine Ratio 9 (6-26) 10/23/16 15:52 Glucose 95 mg/dL (70-99) 10/23/16 15:52 Calculated Osmolality 290 (280-300) 10/23/16 15:52 Calcium 9.8 mg/dL (8.6-10.8) 10/23/16 15:52 AST 23 Units/L (5-34) 10/24/16 01:04 ALT 32 Units/L (0-55) 10/24/16 01:04 Urine Color Yellow (Yellow) 10/23/16 15:45 Urine Clarity Clear (Clear) 10/23/16 15:45 Urine pH 7.5 pH Units (5.0-8.0) 10/23/16 15:45 Ur Specific [place] 1.007 (1.010-1.025) L 10/23/16 15:45 Urine Protein Negative mg/dL (Neg-Trace) 10/23/16 15:45 Urine Glucose (UA) Normal mg/dL (Normal) 10/23/16 15:45 Urine Ketones Negative mg/dL (Negative) 10/23/16 15:45 Urine Blood Negative (Negative) 10/23/16 15:45 Urine Nitrite Negative (Negative) 10/23/16 15:45 Urine Bilirubin Negative (Negative) 10/23/16 15:45 Urine Urobilinogen Normal mg/dL (Normal) 10/23/16 15:45 Ur Leukocyte Esterase Negative (Negative) 10/23/16 15:45 Salicylates < 5.0 mg/dL (15-30) L 10/23/16 15:52 Urine Opiates Screen Negative ng/mL (Zrkdzg=404) 10/23/16 15:45 Acetaminophen < 1.0 mcg/mL (10-30) L 10/23/16 15:52 Ur Barbiturates Screen Negative ng/mL (Alnxkl=800) 10/23/16 15:45 Ur Phencyclidine Scrn Negative ng/mL (Cutoff=25) 10/23/16 15:45 Ur Amphetamines Screen Negative ng/mL (Pepqfs=1398) 10/23/16 15:45 U Benzodiazepines Scrn Negative ng/mL (Jthgts=755) 10/23/16 15:45 Urine Cocaine Screen Negative ng/mL (Cutoff= 300) 10/23/16 15:45 U Marijuana (THC) Screen Negative ng/mL (Cutoff = 50) 10/23/16 15:45 Ethyl Alcohol < 10 mg/dL (0-10) 10/23/16 15:52 Assessment and Plan (1) Anxiety Current visit: No Status: Chronic Plan: Admit inpatient for safety and stabilization, Close observation, Suicide Precautions per unit protocol, Encourage participation in unit milieu, Group Therapy, Monitor sleep, Monitor appetite Risks, benefits, side effects, alternatives discussed w/pt: Yes Patient agreeable to treatment: Yes Plans for Post Hospital Care: Home Estimated Length of Stay (Days): 4
[2016-10-25] MEDS: OLANZapine 5 MG TAB.RAPDIS PO SCH (21:56)
[2016-10-25] MEDS: Mirtazapine 15 MG TABLET PO SCH (21:56)
[2016-10-26] MEDS: tiZANidine 4 MG TABLET PO SCH (08:55)
[2016-10-26] MEDS: Gabapentin 400 MG CAPSULE PO SCH ×4 (08:55→20:56)
[2016-10-26] MEDS: Nicotine 14 MG PATCH.TD24 TD SCH (08:55)
--- NOTE | 2016-10-26 12:50 | Psychiatry Progress Note ---
Date of Encounter: 10/26/16 Time of Encounter: 12:48 Subjective Interval history: Client reports he is feeling better. Likes the med changes that were made. Thinks Ladanyprexa is like "Seroquel but without the bad side effects." Denying SI now. Also pleased because he arranged to be seen at a Suboxone clinic. Looking forward to this appointment. Discussed staying in the hospital one more night to ensure med changes will have a lasting benefit. If still feeling stable tomorrow will look at discharge. Review of Systems Constitutional: Denies: fever, chills, weakness, weight change Eyes: Denies: eye pain, vision change Ears, Nose, Throat: Denies: ear pain, throat pain, dental pain, hearing loss, congestion Cardiovascular: Denies: chest pain, palpitations, dyspnea on exertion Respiratory: Denies: cough, dyspnea, wheezes Gastrointestinal: Denies: abdominal pain, nausea, vomiting, diarrhea, constipation Musculoskeletal: Denies: joint swelling, joint pain Neurological: Denies: headache, weakness, numbness, memory loss Objective: Exam Patient orientation: Yes Person, Yes Time, Yes Place Level of alertness: Alert Patient appearance: Disheveled Behavior: calm, cooperative Psychomotor activity: Increased Eye contact: Maintains Eye Contact Mood description: Anxious Affect description: congruent with mood Speech pattern: Normal rate, Normal rhythm, Normal tone Speech volume: Soft/Quiet Thought process: Goal Oriented Thought content: No Suicidal ideation, No Homicidal ideation, No Overt delusions Perceptual disturbances: No Auditory hallucinations, No Visual hallucinations Judgment: Limited Insight: Partial Results - Vital Signs Vital Signs: Temp Pulse Resp BP Pulse Ox 98.6 F 69 16 113/75 99 10/26/16 09:00 10/26/16 09:00 10/26/16 09:00 10/26/16 09:00 10/24/16 10:57 Assessment and Plan (1) Anxiety Current visit: No Status: Chronic Plan: Continue hospitalization, Close observation, Suicide Precautions per unit protocol, Encourage participation in unit milieu, Group Therapy, Monitor sleep, Monitor appetite Risks, benefits, side effects, alternatives discussed w/pt: Yes Patient agreeable to treatment: Yes Consult Discharge Plan - Plan Additional Instructions: Patient indicates he has an initial appointment at [facility] on 11/02/2016 at 9:00 AM. [facility] is a medication assisted treatment office that provides substance abuse counseling in conjunction with addiction medicine. [facility] is located at [address] [place] [address]. Their phone number is [phone]. [facility] Transportation Services will provide transportation to and from this appointment. Referrals: Bereket Vidal [facility] [Outside] - 10/30/16 3:00 pm (The above appointment is with Trudy Chinchilla for mental health counseling. You will also see Beth Montaño for outpatient psychiatric assessment and medication management services on 12/06/2016 at 9:30am. These are the first available appointments. You may contact the office regularly to check for cancellations that may allow you to be seen sooner. [facility] Transportation Services will provide transportation to and from these appointments.) Elise Leyva [Advanced Practice Nurse] - 01/17/17 2:00 pm (The above appointment is with Elise Leyva for primary health care and medication management services. [facility] Transportation Services will provide transportation to and from this appointment.)
[2016-10-26] MEDS: Mirtazapine 15 MG TABLET PO SCH (20:56)
[2016-10-26] MEDS: OLANZapine 5 MG TAB.RAPDIS PO SCH (20:57)
[2016-10-27] MEDS: Gabapentin 400 MG CAPSULE PO SCH ×2 (08:45→12:02)
[2016-10-27] MEDS: tiZANidine 4 MG TABLET PO SCH (08:45)
[2016-10-27] MEDS: Nicotine 14 MG PATCH.TD24 TD SCH (08:46)
[2016-10-27 09:41] VITALS: BP 125/96
--- NOTE | 2016-10-27 11:04 | Discharge Summary ---
Date of Encounter: 10/27/16 Time of Encounter: 11:00 Diagnosis - Discharge Diagnosis (1) Anxiety Status: Chronic Medications - Discharge Medications Prescriptions: Citalopram [CeleXA] 20 mg PO DAILY #30 tab Mirtazapine [Remeron] 30 mg PO HS #60 tab Mirtazapine [Remeron] 30 mg PO HS #60 tab.rapdis OLANZapine [Zyprexa Zydis] 5 mg PO HS #30 Gabapentin [Neurontin] 800 mg PO QID #60 tablet 08/07/16 [Rx] Tizanidine HCl 2 mg PO DAILY 10/24/16 [History] hydrOXYzine pamoate [Hydroxyzine Pamoate] 50 mg PO TID PRN 10/24/16 [History] Citalopram [CeleXA] 20 mg PO DAILY #30 tab 10/27/16 [Rx] Mirtazapine [Remeron] 30 mg PO HS #60 tab 10/27/16 [Rx] Mirtazapine [Remeron] 30 mg PO HS #60 tab.rapdis 10/27/16 [Rx] OLANZapine [Zyprexa Zydis] 5 mg PO HS #30 10/27/16 [Rx] Allergies cephalexin [From Keflex] Allergy (Verified 06/09/16 04:39) Shakiness flurbiprofen [From Ansaid] Allergy (Verified 06/09/16 04:39) Hives ketorolac [From Toradol] Allergy (Verified 06/09/16 04:39) Nausea tramadol Allergy (Verified 06/09/16 04:39) Itching Provider Date of admission: 10/24/16 14:56 Primary care physician: PCP NO Discharging clinician: Zeny Dumont Assessment and Plan - Patient/Caregiver Discharge Instructions Activity: resume usual activities as tolerated Diet: regular diet Additional Instructions: Patient indicates he has an initial appointment at [facility] on 11/02/2016 at 9:00 AM. [facility] is a medication assisted treatment office that provides substance abuse counseling in conjunction with addiction medicine. [facility] is located at [address] [address]. Their phone number is [phone]. [facility] Transportation Services will provide transportation to and from this appointment. - Follow up Plan Follow up with: Bereket Vidal [facility] [Outside] - 10/30/16 3:00 pm (The above appointment is with Trudy Chinchilla for mental health counseling. You will also see Beth Montaño for outpatient psychiatric assessment and medication management services on 12/06/2016 at 9:30am. These are the first available appointments. You may contact the office regularly to check for cancellations that may allow you to be seen sooner. [facility] Transportation Services will provide transportation to and from these appointments.) Elise Leyva [Advanced Practice Nurse] - 01/17/17 2:00 pm (The above appointment is with Elise Leyva for primary health care and medication management services. [facility] Transportation Services will provide transportation to and from this appointment.) Overall status at discharge: Stable Disposition: Home, Self-Care Hospital Course Hospital course: Mr. Martin is a 25 year old male who was admitted secondary to SI and anxiety. He was seeking benzodiazepines. Admitted his outpatient provider will not give him any. Discussed the reasons why this was the case and ultimately decided to try alternative medications. He was prescribed Seroquel with unwanted side effects. This medication was discontinued in favor of Zyprexa which the client showed a positive clinical response to. His Celexa was also increased to help with depression and anxiety. He started denying SI shortly after admission. At the time of discharge he was future oriented and making plans. Outpatient follow up appointments were arranged. He was discharged to home with his uncle and client was looking forward to getting back to his daily life. Denying SI and HI at time of discharge. - Time Spent with Patient Total time spent providing and/or coordinating discharge services: Quality - Multiple Antipsychotics Patient discharged on 2 or more antipsychotic medications: No Procedures - Procedures Procedures: Medication Management, Crisis Stabilization, Supportive Therapy, Group Therapy Mental Status Exam - Mental Status Exam Patient orientation: Yes Person, Yes Time, Yes Place Level of alertness: Alert Patient appearance: Appropriate Behavior: calm, cooperative Psychomotor activity: Increased Eye contact: Maintains Eye Contact Mood description: Euthymic/stable Affect description: blunted Speech pattern: Normal rate, Normal rhythm, Normal tone Speech Volume: Normal Thought process: Linear, Goal Oriented Thought Content: No Suicidal ideation, No Homicidal ideation, No Overt delusions Perceptual Disturbances: No Auditory hallucinations, No Visual hallucinations Judgment: Limited Insight: Minimal
== END 2016-10-27 13:00 | disposition home or self-care (01) | DRG 756 ==
LOC: EMEROO 14:44 → 1ANU 10-24 14:56
PROVIDERS: ADMIT Psychiatry & Neurology Psychiatry; ATTEND Psychiatry & Neurology Psychiatry

== ENCOUNTER 2017-10-18 18:40 | Inpatient (IN) ==
--- NOTE | 2017-10-18 18:47 | Emergency Department Note ---
Disposition Clinical Impression: Suicidal ideation, Tachycardia Disposition: Admitted As Inpatient Condition: Good Referrals: Elise Leyva [Advanced Practice Nurse] - Forms: ED Satisfaction Letter General Adult HPI - General Chief complaint: ED Psychiatric Symptoms Stated complaint: Suicidal Ideations Time Seen by Provider: 10/18/17 18:42 Nursing Notes Reviewed: Yes Vital Signs Reviewed: Yes - Related Data Home Medications Medication Instructions Recorded Confirmed Tizanidine HCl 2 mg PO DAILY 10/24/16 10/18/17 hydrOXYzine pamoate [Hydroxyzine 50 mg PO TID PRN 10/24/16 10/18/17 Pamoate] Previous Rx's Medication Instructions Recorded Gabapentin [Neurontin] 800 mg PO QID #60 tablet 08/07/16 Citalopram [CeleXA] 20 mg PO DAILY #30 tab 10/27/16 Mirtazapine [Remeron] 30 mg PO HS #60 tab.rapdis 10/27/16 OLANZapine [Zyprexa Zydis] 5 mg PO HS #30 10/27/16 Polyethylene Glycol 3350 [MiraLAX] 17 gm PO DAILY #20 powd.pack 12/06/16 Tizanidine HCl [Zanaflex] 4 mg PO QID #30 cap 12/06/16 Allergies Allergy/AdvReac Type Severity Reaction Status Date / Time cephalexin [From Keflex] Allergy Shakiness Verified 06/09/16 04:39 flurbiprofen [From Ansaid] Allergy Hives Verified 06/09/16 04:39 ketorolac [From Toradol] Allergy Nausea Verified 06/09/16 04:39 tramadol Allergy Itching Verified 06/09/16 04:39 Past Medical History - Past Medical History Medical history: Reports: non-contributory, other Surgical history: Reports: orthopedic, other, other Psychiatric history: Reports: anxiety, ADHD, depression, PTSD, prior suicide attempt, previous psychiatric hospitalization - Social History Smoking Status: Current every day smoker Smokeless Tobacco Status: No Alcohol use: Reports: occasionally Drug use: Reports: prescription drug abuse Course Vital Signs Temperature 98.1 F 10/18/17 18:43 Pulse Rate 124 10/18/17 18:43 Respiratory Rate 20 10/18/17 18:43 Blood Pressure 142/100 10/18/17 18:43 O2 Sat by Pulse Oximetry 100 10/18/17 18:43 Temperature 98.1 F 10/18/17 18:43 Pulse Rate 92 10/18/17 22:16 Respiratory Rate 20 10/18/17 22:16 Blood Pressure 141/95 10/18/17 22:16 O2 Sat by Pulse Oximetry 99 10/18/17 22:16 Oxygen Delivery Oxygen Delivery Room Air Medical Decision Making - MDM Narrative Medical decision making narrative: This documentation is done with the assistance of Dragon dictation. Despite efforts made to ensure accuracy, there may be inaccuracies in director title or spelling and typographical errors. I examined this patient and my medical decision-making was reviewed with the Resident Physician. I agree with the documented findings, disposition and treatment plan as described except to the extent set forth below. Patient seen and evaluated by Dr. Escoto and myself, I agree with his evaluation management plan , supervise care the patient's stay. Patient brought in by EMS for possible auditory hallucinations and also feeling suicidal. He said his nose does not use the is he came in early this time thinking we might we will help him. He is not taking his gabapentin today but he denies any other new meds or ingestions. He is not saw homicidal. We will do a one a consult on him check labs and then reassess. Patient also has some tachycardia which could be from withdrawal of his gabapentin since she has been out of that. Were put an IV in him given some fluids and check his labs and reassess and then [facility] consult. 2125 hrs.: Patient's labs are back we spoke with [facility] they are to come and see the patient. 3 hrs.: [facility] is accepting patient for admission. - Lab Data Result diagrams: 10/18/17 20:33 10/18/17 19:25 Lab Results 10/18/17 10/18/17 10/18/17 Range/Units 18:53 19:25 19:25 WBC (4.3-11.1) K/mcL RBC (4.19-5.50) M/mcL Hgb (12.9-16.9) g/dL Hct (37.5-50.1) % MCV (83.0-100.0) fL MCH (28.0-33.3) pg MCHC (31.6-35.5) g/dL RDW (11.5-14.5) % Plt Count (140-400) K/mcL MPV (9.4-12.4) fL Immature Gran % (0-4) % Seg Neutrophils % % Lymphocytes % % Monocytes % % Eosinophils % % Basophils % % Neutrophils # (1.6-8.9) K/mcL Lymphocytes # (0.6-4.6) K/mcL Monocytes # (0.0-1.3) K/mcL Eosinophils # (0.0-0.6) K/mcL Basophils # (0.0-0.2) K/mcL Sodium 138 (136-145) mEq/L Potassium 3.6 (3.5-5.1) mEq/L Chloride 106 (98-107) mEq/L Carbon Dioxide 26 (23-29) mEq/L BUN 6 (6-20) mg/dL Creatinine 0.85 (0.70-1.30) mg/dL Est GFR ( Amer) > 60 (> 60) Est GFR (Non-Af Amer) > 60 (> 60) BUN/Creatinine Ratio 7 (6-26) Glucose 113 H (70-105) mg/dL Calculated Osmolality 284 (280-300) Calcium 10.2 (8.6-10.3) mg/dL TSH 2.044 (0.340-5.600) mcIU/mL Salicylates < 2.5 L (15.0-30.0) mg/dL Urine Opiates Screen Negative (Kdiinj=941) ng/mL Acetaminophen < 10 L (10-20) mcg/mL Ur Barbiturates Screen Negative (Pmoztp=028) ng/mL Ur Phencyclidine Scrn Negative (Cutoff=25) ng/mL Ur Amphetamines Screen Negative (Jfkdqc=3189) ng/mL U Benzodiazepines Scrn Negative (Pesrex=465) ng/mL Urine Cocaine Screen Negative (Cutoff= 300) ng/mL U Marijuana (THC) Screen Negative (Cutoff = 50) ng/mL Ur Drug Screen Interp See Below Ethyl Alcohol < 10 (Less than 10) mg/dL 10/18/17 Range/Units 20:33 WBC 4.4 (4.3-11.1) K/mcL RBC 4.43 (4.19-5.50) M/mcL Hgb 13.9 (12.9-16.9) g/dL Hct 39.7 (37.5-50.1) % MCV 89.6 (83.0-100.0) fL MCH 31.4 (28.0-33.3) pg MCHC 35.0 (31.6-35.5) g/dL RDW 13.4 (11.5-14.5) % Plt Count 180 (140-400) K/mcL MPV 10.2 (9.4-12.4) fL Immature Gran % 0.5 (0-4) % Seg Neutrophils % 66.4 % Lymphocytes % 23.8 % Monocytes % 8.2 % Eosinophils % 0.9 % Basophils % 0.2 % Neutrophils # 2.9 (1.6-8.9) K/mcL Lymphocytes # 1.0 (0.6-4.6) K/mcL Monocytes # 0.4 (0.0-1.3) K/mcL Eosinophils # 0.0 (0.0-0.6) K/mcL Basophils # 0.0 (0.0-0.2) K/mcL Sodium (136-145) mEq/L Potassium (3.5-5.1) mEq/L Chloride (98-107) mEq/L Carbon Dioxide (23-29) mEq/L BUN (6-20) mg/dL Creatinine (0.70-1.30) mg/dL Est GFR ( Amer) (> 60) Est GFR (Non-Af Amer) (> 60) BUN/Creatinine Ratio (6-26) Glucose (70-105) mg/dL Calculated Osmolality (280-300) Calcium (8.6-10.3) mg/dL TSH (0.340-5.600) mcIU/mL Salicylates (15.0-30.0) mg/dL Urine Opiates Screen (Protxa=872) ng/mL Acetaminophen (10-20) mcg/mL Ur Barbiturates Screen (Umtwdv=426) ng/mL Ur Phencyclidine Scrn (Cutoff=25) ng/mL Ur Amphetamines Screen (Jbrclb=3766) ng/mL U Benzodiazepines Scrn (Vidfrt=806) ng/mL Urine Cocaine Screen (Cutoff= 300) ng/mL U Marijuana (THC) Screen (Cutoff = 50) ng/mL Ur Drug Screen Interp Ethyl Alcohol (Less than 10) mg/dL
[2017-10-18 19:19] LABS: Amphetamine Screen,Urine Negative ng/mL (Cutoff=1000); Barbiturate Screen,Urine Negative ng/mL (Cutoff=200); Benzodiazepines Screen,Urine Negative ng/mL (Cutoff=200); Cannabinoid Screen,Urine Negative ng/mL (Cutoff = 50); Cocaine Screen,Urine Negative ng/mL (Cutoff= 300); Opiate Screen,Urine Negative ng/mL (Cutoff=300); Phencyclidine Screen,Urine Negative ng/mL (Cutoff=25)
[2017-10-18] MEDS ORDERED: 0.9 % Sodium Chloride 1,000 ML IVC ONE (19:20)
[2017-10-18 20:11] LABS: Acetaminophen < 10 mcg/mL (10-20); BUN/Creatinine Ratio 7 (6-26); Blood Urea Nitrogen 6 mg/dL (6-20); Calcium 10.2 mg/dL (8.6-10.3); Carbon Dioxide 26 mEq/L (23-29); Chloride 106 mEq/L (98-107); Ethanol < 10 mg/dL (Less than 10); Glucose 113 mg/dL (70-105); Osmolality,Calculated 284 (280-300); Potassium 3.6 mEq/L (3.5-5.1); Salicylate < 2.5 mg/dL (15.0-30.0); Sodium 138 mEq/L (136-145); eGFR For African Americans > 60 (> 60); eGFR For Non-African Americans > 60 (> 60)
[2017-10-18 20:32] LABS: Thyroid Stimulating Hormone 2.044 mcIU/mL (0.340-5.600)
[2017-10-18 20:41] LABS: Basophils % 0.2 %; Eosinophils % 0.9 %; Hematocrit 39.7 % (37.5-50.1); Hemoglobin 13.9 g/dL (12.9-16.9); Immature Granulocytes % 0.5 % (0-4); Lymphocytes % 23.8 %; Mean Corpuscular Hemoglobin 31.4 pg (28.0-33.3); Mean Corpuscular Volume 89.6 fL (83.0-100.0); Mean Platelet Volume 10.2 fL (9.4-12.4); Monocytes # 0.4 K/mcL (0.0-1.3); Monocytes % 8.2 %; Neutrophils # 2.9 K/mcL (1.6-8.9); Platelet Count 180 K/mcL (140-400); Red Blood Count 4.43 M/mcL (4.19-5.50); Red Cell Distribution Width 13.4 % (11.5-14.5); Segmented Neutrophils % 66.4 %
--- NOTE | 2017-10-18 22:20 | Emergency Department Note ---
Disposition Clinical Impression: Suicidal ideation, Tachycardia Disposition: Admitted As Inpatient Condition: Good Referrals: Elise Leyva [Advanced Practice Nurse] - Forms: ED Satisfaction Letter Psych HPI - General Chief Complaint: ED Psychiatric Symptoms Stated Complaint: Suicidal Ideations Time Seen by Provider: 10/18/17 18:42 Source: EMS Mode of arrival: EMS Limitations: no limitations Nursing Notes Reviewed: Yes Vital Signs Reviewed: Yes - History of Present Illness HPI Narrative: 26-year-old male history of anxiety and depression presents to the ER via EMS with a chief complaint of suicidal ideation. Reports that he has had thoughts of hurting himself and he thought he should come in and get checked out before he started making plans. He has a prior history of suicidal thoughts in the past. He states that his Neurontin was taken from him 4 days ago. Pt complaint: suicidal ideation Onset (ago): day(s) Duration: constant History of similar episodes: Yes Improves with: none Worsens with: none Alleged intoxication: No Associated Psychiatric Symptoms: depression, suicidal ideation Associated symptoms: Reports: denies other symptoms Treatments prior to arrival: none Self harm or harm to others: admits thoughts of self harm, denies having a plan - Related Data Home Medications Medication Instructions Recorded Confirmed Tizanidine HCl 2 mg PO DAILY 10/24/16 10/18/17 hydrOXYzine pamoate [Hydroxyzine 50 mg PO TID PRN 10/24/16 10/18/17 Pamoate] Previous Rx's Medication Instructions Recorded Gabapentin [Neurontin] 800 mg PO QID #60 tablet 08/07/16 Citalopram [CeleXA] 20 mg PO DAILY #30 tab 10/27/16 Mirtazapine [Remeron] 30 mg PO HS #60 tab.rapdis 10/27/16 OLANZapine [Zyprexa Zydis] 5 mg PO HS #30 10/27/16 Polyethylene Glycol 3350 [MiraLAX] 17 gm PO DAILY #20 powd.pack 12/06/16 Tizanidine HCl [Zanaflex] 4 mg PO QID #30 cap 12/06/16 Allergies Allergy/AdvReac Type Severity Reaction Status Date / Time cephalexin [From Keflex] Allergy Shakiness Verified 06/09/16 04:39 flurbiprofen [From Ansaid] Allergy Hives Verified 06/09/16 04:39 ketorolac [From Toradol] Allergy Nausea Verified 06/09/16 04:39 tramadol Allergy Itching Verified 06/09/16 04:39 All systems ED: reviewed and negative except as stated. Psychiatric: Reports: anxiety, depression, suicidal thoughts. Denies: homicidal thoughts, auditory hallucinations, visual hallucinations Past Medical History - Past Medical History Attestation: Yes The following information was validated with the patient. Source: patient Medical history: Reports: non-contributory, other Surgical history: Reports: orthopedic, other, other Psychiatric history: Reports: anxiety, ADHD, depression, PTSD, prior suicide attempt, previous psychiatric hospitalization - Social History Smoking Status: Current every day smoker Smokeless Tobacco Status: No Alcohol use: Reports: occasionally Drug use: Reports: prescription drug abuse Physical Exam - General Limitations: no limitations General appearance: alert, in no apparent distress - Head Head exam: atraumatic, normocephalic - ENT ENT exam: normal exam - Neck Neck exam: Present: normal inspection - Chest Chest inspection: Present: normal inspection - Respiratory Respiratory exam: Present: normal lung sounds bilaterally - Cardiovascular Cardiovascular exam: Present: normal rhythm, tachycardia, normal heart sounds - Extremities Exam Extremities exam: Present: normal inspection, full ROM - Expanded Upper Extremity Exam Shoulder exam: Present: normal inspection, full ROM Arm exam: Present: normal inspection, full ROM Elbow exam: Present: normal inspection, full ROM Forearm/Wrist exam: Present: normal inspection, full ROM Hand exam: Present: normal inspection, full ROM - Expanded Lower Extremity Exam Hip/Pelvis exam: Present: normal inspection, full ROM Upper leg exam: Present: normal inspection, full ROM Knee exam: Present: normal inspection, full ROM Lower leg exam: Present: normal inspection, full ROM Ankle exam: Present: normal inspection, full ROM Foot/toe exam: Present: normal inspection, full ROM - Psychiatric Psychiatric exam: Present: suicidal ideation Course Course Narrative: Patient seen and examined. Vital signs reviewed. Slightly tachycardic here. Suspect may be from not having his Neurontin for the last 4 days. We will get labs urinalysis and give him IV fluids. Patient will require psychiatric evaluation. Vital Signs Temperature 98.1 F 10/18/17 18:43 Pulse Rate 124 10/18/17 18:43 Respiratory Rate 20 10/18/17 18:43 Blood Pressure 142/100 10/18/17 18:43 O2 Sat by Pulse Oximetry 100 10/18/17 18:43 Temperature 98.1 F 10/18/17 18:43 Pulse Rate 92 10/18/17 22:16 Respiratory Rate 20 10/18/17 22:16 Blood Pressure 141/95 10/18/17 22:16 O2 Sat by Pulse Oximetry 99 10/18/17 22:16 Oxygen Delivery Oxygen Delivery Room Air Psych - MDM Narrative Medical decision making narrative: 26-year-old male with suicidal ideation. Tachycardic here otherwise no acute findings. Patient signed out pending psychiatric recommendations. - Lab Data Lab results reviewed: Yes I reviewed the patient's lab results. Result diagrams: 10/18/17 20:33 10/18/17 19:25 Lab Results 10/18/17 10/18/17 10/18/17 Range/Units 18:53 19:25 19:25 WBC (4.3-11.1) K/mcL RBC (4.19-5.50) M/mcL Hgb (12.9-16.9) g/dL Hct (37.5-50.1) % MCV (83.0-100.0) fL MCH (28.0-33.3) pg MCHC (31.6-35.5) g/dL RDW (11.5-14.5) % Plt Count (140-400) K/mcL MPV (9.4-12.4) fL Immature Gran % (0-4) % Seg Neutrophils % % Lymphocytes % % Monocytes % % Eosinophils % % Basophils % % Neutrophils # (1.6-8.9) K/mcL Lymphocytes # (0.6-4.6) K/mcL Monocytes # (0.0-1.3) K/mcL Eosinophils # (0.0-0.6) K/mcL Basophils # (0.0-0.2) K/mcL Sodium 138 (136-145) mEq/L Potassium 3.6 (3.5-5.1) mEq/L Chloride 106 (98-107) mEq/L Carbon Dioxide 26 (23-29) mEq/L BUN 6 (6-20) mg/dL Creatinine 0.85 (0.70-1.30) mg/dL Est GFR ( Amer) > 60 (> 60) Est GFR (Non-Af Amer) > 60 (> 60) BUN/Creatinine Ratio 7 (6-26) Glucose 113 H (70-105) mg/dL Calculated Osmolality 284 (280-300) Calcium 10.2 (8.6-10.3) mg/dL TSH 2.044 (0.340-5.600) mcIU/mL Salicylates < 2.5 L (15.0-30.0) mg/dL Urine Opiates Screen Negative (Vabsxd=823) ng/mL Acetaminophen < 10 L (10-20) mcg/mL Ur Barbiturates Screen Negative (Iyyzhv=727) ng/mL Ur Phencyclidine Scrn Negative (Cutoff=25) ng/mL Ur Amphetamines Screen Negative (Sqroyq=6134) ng/mL U Benzodiazepines Scrn Negative (Omqmjb=316) ng/mL Urine Cocaine Screen Negative (Cutoff= 300) ng/mL U Marijuana (THC) Screen Negative (Cutoff = 50) ng/mL Ur Drug Screen Interp See Below Ethyl Alcohol < 10 (Less than 10) mg/dL 10/18/17 Range/Units 20:33 WBC 4.4 (4.3-11.1) K/mcL RBC 4.43 (4.19-5.50) M/mcL Hgb 13.9 (12.9-16.9) g/dL Hct 39.7 (37.5-50.1) % MCV 89.6 (83.0-100.0) fL MCH 31.4 (28.0-33.3) pg MCHC 35.0 (31.6-35.5) g/dL RDW 13.4 (11.5-14.5) % Plt Count 180 (140-400) K/mcL MPV 10.2 (9.4-12.4) fL Immature Gran % 0.5 (0-4) % Seg Neutrophils % 66.4 % Lymphocytes % 23.8 % Monocytes % 8.2 % Eosinophils % 0.9 % Basophils % 0.2 % Neutrophils # 2.9 (1.6-8.9) K/mcL Lymphocytes # 1.0 (0.6-4.6) K/mcL Monocytes # 0.4 (0.0-1.3) K/mcL Eosinophils # 0.0 (0.0-0.6) K/mcL Basophils # 0.0 (0.0-0.2) K/mcL Sodium (136-145) mEq/L Potassium (3.5-5.1) mEq/L Chloride (98-107) mEq/L Carbon Dioxide (23-29) mEq/L BUN (6-20) mg/dL Creatinine (0.70-1.30) mg/dL Est GFR ( Amer) (> 60) Est GFR (Non-Af Amer) (> 60) BUN/Creatinine Ratio (6-26) Glucose (70-105) mg/dL Calculated Osmolality (280-300) Calcium (8.6-10.3) mg/dL TSH (0.340-5.600) mcIU/mL Salicylates (15.0-30.0) mg/dL Urine Opiates Screen (Esncof=730) ng/mL Acetaminophen (10-20) mcg/mL Ur Barbiturates Screen (Igqnrz=852) ng/mL Ur Phencyclidine Scrn (Cutoff=25) ng/mL Ur Amphetamines Screen (Fridmk=6878) ng/mL U Benzodiazepines Scrn (Irukrn=816) ng/mL Urine Cocaine Screen (Cutoff= 300) ng/mL U Marijuana (THC) Screen (Cutoff = 50) ng/mL Ur Drug Screen Interp Ethyl Alcohol (Less than 10) mg/dL Psychiatric Medical Clearance - Medical Clearance Checklist Medical History: No Social History Section defined Current Vitals: Last Vital Signs Temp 98.1 F 10/18/17 18:43 Pulse 92 10/18/17 22:16 Resp 20 10/18/17 22:16 BP 141/95 10/18/17 22:16 Pulse Ox 99 10/18/17 22:16 Psychiatric Lab Panel: Drug Levels and Toxicity 10/18/17 10/18/17 10/18/17 18:53 19:25 19:25 Urine Opiates Screen Negative Acetaminophen < 10 L Ur Barbiturates Screen Negative Ur Phencyclidine Scrn Negative Ur Amphetamines Screen Negative U Benzodiazepines Scrn Negative Urine Cocaine Screen Negative U Marijuana (THC) Screen Negative Ethyl Alcohol < 10 Abnormal Labs: Abnormal lab results Glucose 113 mg/dL (70-105) H 10/18/17 19:25 Salicylates < 2.5 mg/dL (15.0-30.0) L 10/18/17 19:25 Acetaminophen < 10 mcg/mL (10-20) L 10/18/17 19:25 Statement of Medical Clearance: I have evaluated the patient, reviewed diagnostic information, and certify that the patient's medical condition is sufficiently stable that transfer to the psychiatric unit does not pose a significant risk of deterioration.
[2017-10-18] MEDS ORDERED: traZODone 50 MG TABLET PO PRN (22:52)
[2017-10-18] MEDS ORDERED: *HR* LORazepam 1 MG TABLET PO PRN (22:52)
[2017-10-18] MEDS ORDERED: Haloperidol Lactate 5 MG/ML VIAL IM PRN (22:52)
[2017-10-18] MEDS ORDERED: Ibuprofen 400 MG TABLET PO PRN (22:52)
[2017-10-18] MEDS ORDERED: MOM Conc 10 ML UD.LIQ PO PRN (22:52)
[2017-10-18] MEDS ORDERED: *HR* LORazepam 2 MG/ML VIAL IM PRN (22:52)
[2017-10-18] MEDS ORDERED: Mag Hydrox/Al Hydrox/Simeth 30 ML UDC PO PRN (22:52)
[2017-10-18] MEDS ORDERED: hydrOXYzine pamoate 25 MG CAPSULE PO PRN ×2 (22:52→23:44)
[2017-10-18] MEDS ORDERED: Nicotine 2 MG GUM BC PRN (23:44)
[2017-10-18] MEDS ORDERED: Acetaminophen 325 MG TABLET PO PRN (23:44)
[2017-10-19] MEDS: Gabapentin 400 MG CAPSULE PO SCH ×4 (08:54→20:55)
[2017-10-19] MEDS: tiZANidine 4 MG TABLET PO SCH ×4 (08:54→20:55)
--- NOTE | 2017-10-19 14:06 | Psychiatry History & Physical ---
Date of Encounter: 10/19/17 Time of Encounter: 14:00 History of Present Illness Patient Stated Chief Complaint: I was suicidal Medicare Admission Attestation: For traditional Medicare patients the provided hospital inpatient services are reasonable and necessary and in the case of services not specified as inpatient -only under 42 CFR 419.22 (n), that they are appropriately provided as inpatient services in accordance 42 CFR 412.3. For Critical Access Hospital the patient may reasonably be expected to be discharged or transferred to a hospital within 96 hours after admission to the Critical Access Hospital. Admitted From: Emergency Dept Plans for Post Hospital Care: Home History of Present Illness: Mr. Martin is a 26 year old male The patient is a 26-year-old single white male came by ambulance to the emergency room. Chief complaint I was having suicidal problems History of present illness. The patient went to the ER. He called the squad. He was admitted for 23 hour observation. He was under treatment. He fell asleep at a friend's house. He woke up and his medicines were missing. He looked around but could not find him he did not file a police report. This occurred one week ago he had a few pills of his medicine. He has been out of Suboxone for several days. He is been out of gabapentin for 1 week. He called self or find clinic about the Suboxone and was told he should have enough as he felt it on 726 for 14 days. He was out of gabapentin the [facility] and he was told that there was nothing they could do. The patient had increasing withdrawal symptoms but have been gradually reducing himself. The patient has a history of psychiatric disorder and has been treated in our facility previously. Approximately one year ago he attempted suicide by cutting his wrist. The patient has been followed for depression at site of [facility]. He is been previously diagnosed with sedative dependence. He was taken off benzodiazepines in 2017 because narcotics were found in his urine. The patient has a history of narcotic abuse this started at age 15. It started with pills he has a history of heroin use. He says that he has been on Suboxone for 7 months he has not been on naltrexone or methadone. Past medical history: Surgeries none Illnesses none Allergies as listed cephalexin ketorolac, tramadol and other. Medicines at home include Zanaflex Seroquel Celexa Remeron Suboxone and gabapentin Family history uncle Luis Enrique had a psychiatric problem the patient's father had trouble with alcoholism his grandfather had problems with alcoholism. The family history is positive for drug use. There is no history of suicide. Social history patient graduated high school he quits work he is not on disability he is living at his aunt's he used to have a job at [employer]. Review of systems is essentially noncontributory. 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 and he can only see out of the left Past Med Surg Social Fam HX - Past Medical History Source: old records reviewed Medical history: non-contributory, other - Past Psychiatric History Psychiatric history: Reports: depression, previous psychiatric hospitalization Family psychiatric history: Yes Family History of Suicide: None - Past Surgical History Surgical History: non-contributory, orthopedic, other - Social History Smoking Status: Current every day smoker Smokeless Tobacco Status: No Alcohol use: occasionally Drug use: opiates, IV Drug Use, prescription drug abuse Occupational status: previously employed Current living situation: Home, With Family Activity Level: Independent ambulation Recent Out of Country Travel Within the Last 8 Weeks: No Exposure or Possible Exposure to Illness During Travel: No Medications & Allergies Gabapentin [Neurontin] 800 mg PO QID #60 tablet 08/07/16 [Rx] Tizanidine HCl 2 mg PO DAILY 10/24/16 [History] hydrOXYzine pamoate [Hydroxyzine Pamoate] 50 mg PO TID PRN 10/24/16 [History] Citalopram [CeleXA] 20 mg PO DAILY #30 tab 10/27/16 [Rx] Mirtazapine [Remeron] 30 mg PO HS #60 tab.rapdis 10/27/16 [Rx] Tizanidine HCl [Zanaflex] 4 mg PO QID #30 cap 12/06/16 [Rx] Buprenorphine HCl/Naloxone HCl [Buprenorphin-Naloxon 8-2 mg Sl] 1 each SL DAILY 10/19/17 [History] Quetiapine Fumarate [Seroquel] 50 mg PO HS 10/19/17 [History] 3 Allergy/AdvReac Type Severity Reaction Status Date / Time cephalexin [From Keflex] Allergy Shakiness Verified 06/09/16 04:39 flurbiprofen [From Ansaid] Allergy Hives Verified 06/09/16 04:39 ketorolac [From Toradol] Allergy Nausea Verified 06/09/16 04:39 tramadol Allergy Itching Verified 06/09/16 04:39 Review of Systems Constitutional: Denies: fever, chills, weakness, weight change Eyes: Reports: vision change Cardiovascular: Denies: chest pain, palpitations, dyspnea on exertion Respiratory: Denies: cough, dyspnea, wheezes Gastrointestinal: Denies: abdominal pain, nausea, vomiting, diarrhea, constipation Genitourinary male: Denies: urgency, dysuria, frequency, genital lesions Musculoskeletal: Denies: joint swelling, joint pain Integumentary: Denies: rash, lesions, pruritus Neurological: Denies: headache, weakness, numbness, memory loss Psychiatric: Reports: depression, anxiety, abnormal sleep pattern, suicidal ideation Endocrine: Denies: fatigue, heat or cold intolerance Hematologic/Lymphatic: Denies: easy bruising, lymphadenopathy Allergic/Immunologic: Denies: facial swelling Exam - HEENT Head exam IM: Present: atraumatic Eye exam IM: Present: EOMI ENT exam IM: Present: mucous membranes dry - Neurological Neurological exam: Present: CN II-XII intact - Respiratory Respiratory exam IM: Present: CTAB - GI/Abdominal GI/Abdominal exam IM: Present: normal bowel sounds - Skin Skin exam IM: Present: abrasion - Constitutional Vitals: Temp Pulse Resp BP Pulse Ox 98.2 F 79 16 126/98 99 10/19/17 08:37 10/19/17 08:37 10/19/17 08:37 10/19/17 08:37 10/18/17 22:16 General appearance: age & developmentally appropriate, unkempt, thin - Musculoskeletal Gait: slow Station: shaky Strength & Tone: normal for patient - Psychiatric Patient Orientation: Yes Person, Yes Time, Yes Place, Yes Circumstance Level of alertness: Alert Behavior: nervous, anxious Psychomotor activity: Slowed Eye Contact: Minimal Contact Mood Description: Anxious Affect description: dysphoric Speech Volume: Soft/Quiet Speech pattern: normal rhythm Language & Vocabulary: grade school level Thought Process: Logical, [place] Thought Content: Yes Suicidal ideation Perceptual Disturbances: No Auditory hallucinations, No Visual hallucinations Attention Span Ability: Capable of Sustained Attention Memory Description: Grossly Intact Patient Reliability: Questionable Historian Fund of knowledge: Yes below average Intelligence Estimate: Below Average Judgment: Limited Insight: Minimal Results - Labs Labs: Laboratory Last Values WBC 4.4 K/mcL (4.3-11.1) 10/18/17 20:33 RBC 4.43 M/mcL (4.19-5.50) 10/18/17 20:33 Hgb 13.9 g/dL (12.9-16.9) 10/18/17 20:33 Hct 39.7 % (37.5-50.1) 10/18/17 20: MCV 89.6 fL (83.0-100.0) 10/18/17 20: MCH 31.4 pg (28.0-33.3) 10/18/17 20: MCHC 35.0 g/dL (31.6-35.5) 10/18/17 20: RDW 13.4 % (11.5-14.5) 10/18/17 20: Plt Count 180 K/mcL (140-400) 10/18/17 20: MPV 10.2 fL (9.4-12.4) 10/18/17 20:33 Immature Gran % 0.5 % (0-4) 10/18/17 20: Seg Neutrophils % 66.4 % 10/18/17 20:33 Lymphocytes % 23.8 % 10/18/17 20: Monocytes % 8.2 % 10/18/17 20:33 Eosinophils % 0.9 % 10/18/17 20: Basophils % 0.2 % 10/18/17 20:33 Neutrophils # 2.9 K/mcL (1.6-8.9) 10/18/17 20: Lymphocytes # 1.0 K/mcL (0.6-4.6) 10/18/17 20:33 Monocytes # 0.4 K/mcL (0.0-1.3) 10/18/17 20:33 Eosinophils # 0.0 K/mcL (0.0-0.6) 10/18/17 20:33 Basophils # 0.0 K/mcL (0.0-0.2) 10/18/17 20:33 Sodium 138 mEq/L (136-145) 10/18/17 19:25 Potassium 3.6 mEq/L (3.5-5.1) 10/18/17 19:25 Chloride 106 mEq/L (98-107) 10/18/17 19:25 Carbon Dioxide 26 mEq/L (23-29) 10/18/17 19:25 BUN 6 mg/dL (6-20) 10/18/17 19:25 Creatinine 0.85 mg/dL (0.70-1.30) 10/18/17 19:25 Est GFR ( Amer) > 60 (> 60) 10/18/17 19:25 Est GFR (Non-Af Amer) > 60 (> 60) 10/18/17 19:25 BUN/Creatinine Ratio 7 (6-26) 10/18/17 19:25 Glucose 113 mg/dL (70-105) H 10/18/17 19:25 Calculated Osmolality 284 (280-300) 10/18/17 19:25 Calcium 10.2 mg/dL (8.6-10.3) 10/18/17 19:25 TSH 2.044 mcIU/mL (0.340-5.600) 10/18/17 19:25 Salicylates < 2.5 mg/dL (15.0-30.0) L 10/18/17 19:25 Urine Opiates Screen Negative ng/mL (Oxigxh=322) 10/18/17 18:53 Acetaminophen < 10 mcg/mL (10-20) L 10/18/17 19:25 Ur Barbiturates Screen Negative ng/mL (Qewojc=372) 10/18/17 18:53 Ur Phencyclidine Scrn Negative ng/mL (Cutoff=25) 10/18/17 18:53 Ur Amphetamines Screen Negative ng/mL (Iqistf=7923) 10/18/17 18:53 U Benzodiazepines Scrn Negative ng/mL (Dkvplt=599) 10/18/17 18:53 Urine Cocaine Screen Negative ng/mL (Cutoff= 300) 10/18/17 18:53 U Marijuana (THC) Screen Negative ng/mL (Cutoff = 50) 10/18/17 18:53 Ur Drug Screen Interp See Below 10/18/17 18:53 Ethyl Alcohol < 10 mg/dL (Less than 10) 10/18/17 19:25 Assessment and Plan (1) Major depressive disorder, recurrent severe without psychotic features Current visit: Yes Status: Acute Plan: Admit inpatient for safety and stabilization, Close observation, Suicide Precautions per unit protocol, Encourage participation in unit milieu Risks, benefits, side effects, alternatives discussed w/pt: Yes Patient agreeable to treatment: Yes Plans for Post Hospital Care: Home Estimated Length of Stay ( Days): 7 (2) Suicidal ideations Current visit: Yes Status: Acute Plan: Admit inpatient for safety and stabilization, Close observation, Secure weapons Risks, benefits, side effects, alternatives discussed w/pt: Yes Patient agreeable to treatment: Yes Plans for Post Hospital Care: Home (3) Sedative, hypnotic or anxiolytic dependence, uncomplicated Current visit: Yes Status: Acute Plan: Admit inpatient for safety and stabilization, Close observation, Encourage participation in unit milieu Risks, benefits, side effects, alternatives discussed w/pt: Yes Patient agreeable to treatment: Yes Plans for Post Hospital Care: Home (4) Uncomplicated opioid dependence Current visit: Yes Status: Acute Plan: Admit inpatient for safety and stabilization, Close observation, Suicide Precautions per unit protocol, Encourage participation in unit milieu, Monitor sleep Risks, benefits, side effects, alternatives discussed w/pt: Yes Patient agreeable to treatment: Yes Plans for Post Hospital Care: Home (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 Plan: Family/Supportive other meeting Risks, benefits, side effects, alternatives discussed w/pt: Yes Patient agreeable to treatment: Yes (6) Edentulous Current visit: Yes Status: Acute Plan: Monitor appetite Risks, benefits, side effects, alternatives discussed w /pt: Yes Patient agreeable to treatment: Yes Plans for Post Hospital Care: Home (7) Suicidal ideation Current visit: No Status: Acute Plan: Admit inpatient for safety and stabilization, Encourage participation in unit milieu, Group Therapy, Secure weapons, Family/Supportive other meeting Risks, benefits, side effects, alternatives discussed w/pt: Yes Patient agreeable to treatment: Yes Plans for Post Hospital Care: Home
[2017-10-19] MEDS: Mirtazapine 15 MG TABLET PO SCH (20:55)
[2017-10-19] MEDS: OLANZapine 5 MG TAB.RAPDIS PO SCH (20:55)
[2017-10-20] MEDS: tiZANidine 4 MG TABLET PO SCH ×3 (09:21→21:17)
[2017-10-20] MEDS: Gabapentin 400 MG CAPSULE PO SCH ×3 (09:21→21:17)
[2017-10-20] MEDS: *HR* Buprenorphine HCl 8 MG TAB.SUBL SL SCH (09:22)
--- NOTE | 2017-10-20 10:34 | Psychiatry Progress Note ---
Date of Encounter: 10/20/17 Time of Encounter: 10:32 Subjective Interval history: Client states he is feeling better. Started Subutex today and reports it is helping. Mood is improved. SI still present but lessening. Pulled from group to speak with this com writer so attempting to participate on unit. Current plan is to discharge him straight to his Suboxone clinic appointment Sunday. Long AOD history. Has been on 1A before but living situation is apparently better now than in the past. Client states he wants to use this weekend to allow meds to take effect. Review of Systems Constitutional: Denies: fever, chills, weakness, weight change Eyes: Denies: eye pain, vision change Ears, Nose, Throat: Denies: ear pain, throat pain, dental pain, hearing loss, congestion Cardiovascular: Denies: chest pain, palpitations, dyspnea on exertion Respiratory: Denies: cough, dyspnea, wheezes Gastrointestinal: Denies: abdominal pain, nausea, vomiting, diarrhea, constipation Musculoskeletal: Denies: joint swelling, joint pain Neurological: Denies: headache, weakness, numbness, memory loss Psychiatric: Reports: depression, anxiety, abnormal sleep pattern, suicidal ideation Results - Vital Signs Vital Signs: Temp Pulse Resp BP Pulse Ox 97.7 F 107 20 114/87 99 10/20/17 09:00 10/20/17 09:00 10/20/17 09:00 10/20/17 09:00 10/18/17 22:16 Assessment and Plan (1) Major depressive disorder, recurrent severe without psychotic features Current visit: Yes Status: Acute Plan: Continue hospitalization, Close observation, Suicide Precautions per unit protocol, Encourage participation in unit milieu, Group Therapy, Monitor sleep, Monitor appetite Risks, benefits, side effects, alternatives discussed w/pt: Yes Patient agreeable to treatment: Yes (2) Uncomplicated opioid dependence Current visit: Yes Status: Acute Plan: Continue hospitalization, Close observation, Suicide Precautions per unit protocol, Encourage participation in unit milieu, Group Therapy, Monitor sleep, Monitor appetite Risks, benefits, side effects, alternatives discussed w/pt: Yes Patient agreeable to treatment: Yes (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 Patient reports next appointment is today, 10/24/2017 at 1:00 PM. Referrals: Bereket iVdal Swati [Outside] - 10/30/17 11:00 am (The above appointment is with Sonia Chinchilla for outpatient mental health counseling services. You will also see Chelita for outpatient psychiatric assessment and medication management services on 11/29/2017 at 3:00 PM. [facility] Transportation services will provide transportation for these appointments.) Elise Leyva [Advanced Practice Nurse] - 10/25/17 2:45 pm (The above appointment is with Elise Leyva for [facility] services. [facility] Transportation services will provide transportation for this appointments.) Psychiatry Exam - Constitutional Vitals: Temp Pulse Resp BP Pulse Ox 97.7 F 107 20 114/87 99 10/20/17 09:00 10/20/17 09:00 10/20/17 09:00 10/20/17 09:00 10/18/17 22:16 General appearance: thin - Musculoskeletal Gait: normal Station: relaxed Strength & Tone: normal for patient - Psychiatric Patient Orientation: Yes Person Level of alertness: Alert Behavior: calm, cooperative Psychomotor activity: Normal Eye Contact: Maintains Eye Contact Mood Description: Depressed Affect description: congruent with mood Speech Volume: Normal Speech pattern: normal rate, normal rhythm, normal tone, fluent, spontaneous Language & Vocabulary: consistent with education Thought Process: Linear, Goal Oriented Thought Content: Yes Suicidal ideation, No Homicidal ideation, No Overt delusions Perceptual Disturbances: No Auditory hallucinations, No Visual hallucinations Attention Span Ability: Capable of Focused Attention Memory Description: Grossly Intact Patient Reliability: Reliable Historian Fund of knowledge: Yes abstraction ability, Yes aware of current events Intelligence Estimate: Below Average Judgment: Limited Insight: Partial
[2017-10-20] MEDS: Mirtazapine 15 MG TABLET PO SCH (21:17)
[2017-10-20] MEDS: OLANZapine 5 MG TAB.RAPDIS PO SCH (21:17)
[2017-10-21] MEDS: *HR* Buprenorphine HCl 8 MG TAB.SUBL SL SCH (08:37)
[2017-10-21] MEDS: Gabapentin 400 MG CAPSULE PO SCH ×3 (08:37→21:37)
[2017-10-21] MEDS: tiZANidine 4 MG TABLET PO SCH ×3 (08:37→21:36)
--- NOTE | 2017-10-21 10:27 | Psychiatry Progress Note ---
Date of Encounter: 10/21/17 Time of Encounter: 10:21 Subjective Interval history: States his mood is "so-so" today but denies SI. Has been active on the unit. Attending groups. Plan remains to discharge him to his Suboxone appointment on Sunday. Initially told nurse he planned to get a lockbox for his medications so his brother's girlfriend won't take them. However, today announced it might be better if he just always keeps his meds on him in his pockets. Still needs to work on safety issues. Review of Systems Constitutional: Denies: fever, chills, weakness, weight change Eyes: Denies: eye pain, vision change Ears, Nose, Throat: Denies: ear pain, throat pain, dental pain, hearing loss, congestion Cardiovascular: Denies: chest pain, palpitations, dyspnea on exertion Respiratory: Denies: cough, dyspnea, wheezes Gastrointestinal: Denies: abdominal pain, nausea, vomiting, diarrhea, constipation Musculoskeletal: Reports: myalgia Neurological: Denies: headache, weakness, numbness, memory loss Psychiatric: Reports: depression, anxiety, abnormal sleep pattern, suicidal ideation Results - Vital Signs Vital Signs: Temp Pulse Resp BP Pulse Ox 97.9 F 98 20 124/90 99 10/21/17 09:00 10/21/17 09:00 10/21/17 09:00 10/21/17 09:00 10/18/17 22:16 Assessment and Plan (1) Major depressive disorder, recurrent severe without psychotic features Current visit: Yes Status: Acute Plan: Continue hospitalization, Close observation, Suicide Precautions per unit protocol, Encourage participation in unit milieu, Group Therapy, Monitor sleep, Monitor appetite Risks, benefits, side effects, alternatives discussed w/pt: Yes Patient agreeable to treatment: Yes (2) Uncomplicated opioid dependence Current visit: Yes Status: Acute Plan: Continue hospitalization, Close observation, Suicide Precautions per unit protocol, Encourage participation in unit milieu, Group Therapy, Monitor sleep, Monitor appetite Risks, benefits, side effects, alternatives discussed w/pt: Yes Patient agreeable to treatment: Yes (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 Patient reports next appointment is today, 10/24/2017 at 1:00 PM. Referrals: Bereket Vidal [facility] [Outside] - 10/30/17 11:00 am (The above appointment is with Sonia Chinchilla for outpatient mental health counseling services. You will also see Chelita for outpatient psychiatric assessment and medication management services on 11/29/2017 at 3:00 PM. [facility] Transportation services will provide transportation for these appointments.) Elise Leyva [Advanced Practice Nurse] - 10/25/17 2:45 pm (The above appointment is with Elise Leyva for [facility]. [facility] Transportation services will provide transportation for this appointments.) Psychiatry Exam - Constitutional Vitals: Temp Pulse Resp BP Pulse Ox 97.9 F 98 20 124/90 99 10/21/17 09:00 10/21/17 09:00 10/21/17 09:00 10/21/17 09:00 10/18/17 22:16 General appearance: thin - Musculoskeletal Gait: normal Station: relaxed Strength & Tone: normal for patient - Psychiatric Patient Orientation: Yes Person, Yes Time, Yes Place Level of alertness: Alert Behavior: calm, cooperative Psychomotor activity: Normal Eye Contact: Maintains Eye Contact Mood Description: Depressed Affect description: congruent with mood Speech Volume: Normal Speech pattern: normal rate, normal rhythm, normal tone, fluent, spontaneous Language & Vocabulary: consistent with education Thought Process: Linear, Goal Oriented Thought Content: No Suicidal ideation, No Homicidal ideation, No Overt delusions Perceptual Disturbances: No Auditory hallucinations, No Visual hallucinations Attention Span Ability: Capable of Focused Attention Memory Description: Grossly Intact Patient Reliability: Reliable Historian Fund of knowledge: Yes abstraction ability, Yes aware of current events Intelligence Estimate: Below Average Judgment: Limited Insight: Partial
[2017-10-21] MEDS: Cholecalciferol (D-3) 1,000 UNIT TABLET PO SCH (13:47)
[2017-10-21] MEDS: Mirtazapine 15 MG TABLET PO SCH (21:37)
[2017-10-21] MEDS: OLANZapine 5 MG TAB.RAPDIS PO SCH (21:38)
[2017-10-22] MEDS: tiZANidine 4 MG TABLET PO SCH ×3 (09:01→21:45)
[2017-10-22] MEDS: Gabapentin 400 MG CAPSULE PO SCH ×2 (09:01→21:44)
[2017-10-22] MEDS: Cholecalciferol (D-3) 1,000 UNIT TABLET PO SCH (09:01)
[2017-10-22] MEDS: *HR* Buprenorphine HCl 8 MG TAB.SUBL SL SCH (09:01)
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
[2017-10-22] MEDS: OLANZapine 5 MG TAB.RAPDIS PO SCH (21:44)
[2017-10-22] MEDS: Mirtazapine 15 MG TABLET PO SCH (21:45)
[2017-10-23] MEDS: tiZANidine 4 MG TABLET PO SCH ×3 (08:35→21:48)
[2017-10-23] MEDS: Cholecalciferol (D-3) 1,000 UNIT TABLET PO SCH (08:35)
[2017-10-23] MEDS: *HR* Buprenorphine HCl 2 MG SUBLINGUAL TABLET SL SCH (08:35)
--- NOTE | 2017-10-23 14:30 | Psychiatry Progress Note ---
Date of Encounter: 10/23/17 Time of Encounter: 14:30 Subjective Interval history: The patient is a 26-year-old white male. He is requested to get back on his gabapentin. He had 800 mg at night but finds that he is increasingly anxious anxious and irritable. The patient and I discussed continuation of medication. He has his follow-up appointment and transportation arranged for tomorrow October 24. The patient will still have a short fall of gabapentin will give him an additional dose now as he appears somewhat nervous and then I will give him a 2 week supply upon leaving he does not have his muscle relaxer tizanidine either Review of Systems Psychiatric: Reports: depression, anxiety, abnormal sleep pattern Results - Vital Signs Vital Signs: Temp Pulse Resp BP Pulse Ox 97.5 F L 94 16 124/88 99 10/23/17 09:00 10/23/17 09:00 10/23/17 09:00 10/23/17 09:00 10/18/17 22:16 Assessment and Plan (1) Major depressive disorder, recurrent severe without psychotic features Current visit: Yes Status: Acute Risks, benefits, side effects, alternatives discussed w/pt: Yes Patient agreeable to treatment: Yes (2) Suicidal ideations Current visit: Yes Status: Acute Risks, benefits, side effects, alternatives discussed w/pt: Yes Patient agreeable to treatment: Yes (3) Sedative, hypnotic or anxiolytic dependence, uncomplicated Current visit: Yes Status: Acute Risks, benefits, side effects, alternatives discussed w/pt: Yes Patient agreeable to treatment: Yes (4) Uncomplicated opioid dependence Current visit: Yes Status: Acute Risks, benefits, side effects, alternatives discussed w/pt: Yes Patient agreeable to treatment: Yes (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 Patient reports next appointment is 10/24/2017 at 1:00 PM. Referrals: Bereket Vidal [facility] - 10/30/17 11:00 am (The above appointment is with Sonia Chinchilla for outpatient mental health counseling services. You will also see Chelita for outpatient psychiatric assessment and medication management services on 11/29/2017 at 3:00 PM. [facility] Transportation services will provide transportation for these appointments.) Elise Leyva [Advanced Practice Nurse] - 10/25/17 2:45 pm (The above appointment is with Elise Leyva for [facility] services. [facility] Transportation services will provide transportation for this appointments.) Psychiatry Exam - Constitutional Vitals: Temp Pulse Resp BP Pulse Ox 97.5 F L 94 16 124/88 99 10/23/17 09:00 10/23/17 09:00 10/23/17 09:00 10/23/17 09:00 10/18/17 22:16 General appearance: age & developmentally appropriate, well-groomed, well- nourished - Musculoskeletal Gait: brisk Station: shaky Strength & Tone: normal for patient - Psychiatric Patient Orientation: Yes Person, Yes Time, Yes Place Level of alertness: Alert Behavior: anxious Psychomotor activity: Increased Eye Contact: Minimal Contact Mood Description: Anxious Affect description: anxious Speech Volume: Soft/Quiet Speech pattern: normal rate Language & Vocabulary: consistent with education Thought Process: Logical Attention Span Ability: Capable of Sustained Attention Memory Description: Grossly Intact Patient Reliability: Questionable Historian Fund of knowledge: Yes below average Intelligence Estimate: Below Average Judgment: Fair Insight: Partial
[2017-10-23] MEDS ORDERED: Gabapentin 300 MG CAPSULE PO ONE (15:00)
[2017-10-23] MEDS: Gabapentin 400 MG CAPSULE PO SCH (21:48)
[2017-10-23] MEDS: Mirtazapine 15 MG TABLET PO SCH (21:48)
[2017-10-23] MEDS: OLANZapine 5 MG TAB.RAPDIS PO SCH (21:48)
[2017-10-24] MEDS: tiZANidine 4 MG TABLET PO SCH (09:07)
[2017-10-24] MEDS: Cholecalciferol (D-3) 1,000 UNIT TABLET PO SCH (09:07)
[2017-10-24] MEDS: *HR* Buprenorphine HCl 2 MG SUBLINGUAL TABLET SL SCH (09:07)
[2017-10-24 09:35] VITALS: BP 135/97
[2017-10-24] MEDS ORDERED: Gabapentin 300 MG CAPSULE PO ONE ×2 (10:10→10:27)
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
== END 2017-10-24 12:29 | disposition home or self-care (01) | DRG 751 ==
LOC: 1ANU 18:40 → EMEROO 18:40 → 1ANU 23:00
PROVIDERS: ADMIT Psychiatry & Neurology Forensic Psychiatry; ATTEND Psychiatry & Neurology Forensic Psychiatry

== ENCOUNTER 2022-01-16 14:38 | Inpatient (IN) ==
[2022-01-16] MEDS ORDERED: Iopamidol - 370 500 ML MLS IVP ONE (17:32)
[2022-01-16] MEDS ORDERED: Tdap (Boostrix) Vaccine 0.5 ML SYRINGE IM ONE (17:40)
[2022-01-16] MEDS ORDERED: levoFLOXacin 750 MG/150 ML 750 MG/150 ML BAG IVPB ONE (17:44)
[2022-01-16 18:30] LABS: Basophils % 0.5 %; Eosinophils # 0.1 K/mcL (0.0-0.6); Eosinophils % 1.5 %; Hematocrit 37.5 % (37.5-50.1); Hemoglobin 12.4 g/dL (12.9-16.9); Immature Granulocytes % 0.3 % (0-4); Lymphocytes # 1.3 K/mcL (0.6-4.6); Lymphocytes % 32.4 %; Mean Corpuscular HGB Conc 33.1 g/dL (31.6-35.5); Mean Corpuscular Hemoglobin 28.9 pg (28.0-33.3); Mean Corpuscular Volume 87.4 fL (83.0-100.0); Mean Platelet Volume 10.8 fL (9.4-12.4); Monocytes # 0.3 K/mcL (0.0-1.3); Monocytes % 7.3 %; Neutrophils # 2.3 K/mcL (1.6-8.9); Platelet Count 197 K/mcL (140-400); Red Blood Count 4.29 M/mcL (4.19-5.50); Red Cell Distribution Width 13.1 % (11.5-14.5)
[2022-01-16 18:54] LABS: BUN/Creatinine Ratio 7 (6-26); Blood Urea Nitrogen 6 mg/dL (6-20); C-Reactive Protein 59 mg/L (Less than 10); Calcium 10.1 mg/dL (8.6-10.3); Carbon Dioxide 29 mEq/L (23-29); Chloride 98 mEq/L (98-107); Glucose 89 mg/dL (70-105); Osmolality,Calculated 277 (280-300); Sodium 135 mEq/L (136-145)
[2022-01-16] MEDS ORDERED: Ondansetron 4 MG/2 ML VIAL IVP PRN (20:28)
[2022-01-16] MEDS ORDERED: Acetaminophen 325 MG TABLET PO PRN (20:28)
[2022-01-16] MEDS ORDERED: Naloxone 0.4 MG/ML INJ IVP PRN (20:28)
[2022-01-16] MEDS ORDERED: Melatonin 3 MG TABLET PO PRN (20:28)
[2022-01-16] MEDS ORDERED: 0.9 % Sodium Chloride 1,000 ML IVC SCH (20:30)
[2022-01-16] MEDS: Piperacillin/Tazobactam 3.375 GM in 0.9 % Sodium Chloride Mini Bag 100 ML IVPB SCH (23:56)
[2022-01-16] MEDS: *HR* HYDROcodone/Acet 5/325 mg TABLET PO PRN (23:57)
[2022-01-16] MEDS: *HR* Heparin 5,000 UNIT/ML VIAL SQ SCH (23:58)
[2022-01-17] MEDS ORDERED: Mirtazapine 15 MG TABLET PO SCH (01:45)
[2022-01-17] MEDS: Gabapentin 300 MG CAPSULE PO SCH ×4 (01:53→20:42)
[2022-01-17 03:22] LABS: Alanine Aminotransferase 16 Units/L (7-52); Albumin 4.8 g/dL (3.5-5.7); Albumin/Globulin Ratio 1.1 (1.1-2.2); Alkaline Phosphatase 101 Units/L (34-104); Aspartate Amino Transferase 23 Units/L (13-39); Bilirubin,Direct 0.1 mg/dL (0.0-0.2); Bilirubin,Indirect 0.3 mg/dL (0.0-1.0); Bilirubin,Total 0.4 mg/dL (0.3-1.0); Globulin 4.5 g/dL (2.4-3.5); Magnesium 1.5 mg/dL (1.6-2.6); Total Protein 9.3 g/dL (6.4-8.9)
[2022-01-17] MEDS: *HR* Heparin 5,000 UNIT/ML VIAL SQ SCH ×3 (05:13→20:43)
[2022-01-17] MEDS: *HR* HYDROcodone/Acet 5/325 mg TABLET PO PRN ×2 (06:27→20:42)
[2022-01-17] MEDS ORDERED: *HR* OxyCODONE/APAP 5/325 TABLET PO PRN (10:10)
[2022-01-17 10:13] LABS: Basophils % 0.3 %; Eosinophils # 0.1 K/mcL (0.0-0.6); Eosinophils % 2.5 %; Hematocrit 34.9 % (37.5-50.1); Hemoglobin 11.5 g/dL (12.9-16.9); Immature Granulocytes % 0.3 % (0-4); Lymphocytes # 1.2 K/mcL (0.6-4.6); Lymphocytes % 32.7 %; Mean Corpuscular Hemoglobin 28.8 pg (28.0-33.3); Mean Corpuscular Volume 87.5 fL (83.0-100.0); Mean Platelet Volume 10.6 fL (9.4-12.4); Monocytes # 0.5 K/mcL (0.0-1.3); Monocytes % 13.2 %; Neutrophils # 1.9 K/mcL (1.6-8.9); Platelet Count 173 K/mcL (140-400); Red Blood Count 3.99 M/mcL (4.19-5.50); Red Cell Distribution Width 13.2 % (11.5-14.5); White Blood Count 3.6 K/mcL (4.3-11.1)
[2022-01-17] MEDS: Piperacillin/Tazobactam 3.375 GM in 0.9 % Sodium Chloride Mini Bag 100 ML IVPB SCH ×3 (10:14→23:44)
[2022-01-17 10:20] LABS: INR 1.3; Prothrombin Time 14.5 Seconds (9.4-12.1)
[2022-01-17 10:35] LABS: BUN/Creatinine Ratio 9 (6-26); Blood Urea Nitrogen 7 mg/dL (6-20); Calcium 9.1 mg/dL (8.6-10.3); Carbon Dioxide 27 mEq/L (23-29); Chloride 107 mEq/L (98-107); Glucose 93 mg/dL (70-105); Osmolality,Calculated 286 (280-300); Potassium 4.2 mEq/L (3.5-5.1); Sodium 139 mEq/L (136-145)
[2022-01-17] MEDS ORDERED: Nicotine 14 MG PATCH.TD24 TD SCH (10:45)
[2022-01-17] MEDS ORDERED: Lidocaine -MPF 2% 2 ML VIAL ONE (11:36)
[2022-01-17 11:37] LABS: Hepatitis B Surface Antigen Nonreactive (Nonreactive)
[2022-01-17] MEDS ORDERED: *HR* FentaNYL (PF) 100 MCG/2 ML VIAL ONE (11:37)
[2022-01-17] MEDS ORDERED: *HR* Propofol 200 MG/20 ML VIAL IVP ONE (11:37)
[2022-01-17] MEDS ORDERED: *HR* Midazolam HCl 2 MG/2 ML VIAL ONE (11:37)
[2022-01-17 12:06] LABS: Hepatitis B Core IgM Nonreactive (Nonreactive)
[2022-01-17 12:07] LABS: Hepatitis A Antibody IgM Nonreactive (Nonreactive); Hepatitis C Virus Antibody Nonreactive (Nonreactive)
[2022-01-17] MEDS ORDERED: Lidocaine/EPI 1:100k 1% 10 ML Vial ONE (12:44)
[2022-01-17] MEDS ORDERED: Ketamine HCL *QUVA* 50mg (1mL) SYRINGE ONE (12:46)
[2022-01-17] MEDS ORDERED: Ondansetron 4 MG/2 ML VIAL ONE (13:12)
[2022-01-17] MEDS ORDERED: Ketorolac 30 MG/ML VIAL IVP PRN (13:41)
[2022-01-17] MEDS: *HR* HYDROmorphone PF 0.5 MG/0.5 ML SYRINGE IVP PRN ×2 (13:54→14:03)
[2022-01-17] MEDS ORDERED: Naloxone 0.4 MG/ML INJ IVP PRN (14:52)
[2022-01-17] MEDS ORDERED: Ondansetron 4 MG/2 ML VIAL IVP PRN (14:52)
[2022-01-17] MEDS ORDERED: Acetaminophen 325 MG TABLET PO PRN (14:52)
[2022-01-17] MEDS ORDERED: ALPRAZolam 0.25 MG TABLET PO ONE (15:19)
[2022-01-17] MEDS: *HR* OxyCODONE/APAP 5/325 TABLET PO PRN ×2 (17:22→23:44)
[2022-01-17] MEDS: Mirtazapine 15 MG TABLET PO SCH (20:43)
[2022-01-17] MEDS: Melatonin 3 MG TABLET PO PRN (23:46)
[2022-01-18] MEDS: *HR* HYDROcodone/Acet 5/325 mg TABLET PO PRN ×3 (05:42→20:56)
[2022-01-18] MEDS: *HR* Heparin 5,000 UNIT/ML VIAL SQ SCH ×3 (05:45→20:51)
[2022-01-18 05:59] LABS: Hemoglobin 11.5 g/dL (12.9-16.9); Immature Granulocytes % 0.2 % (0-4); Lymphocytes % 18.3 %; Mean Corpuscular HGB Conc 32.9 g/dL (31.6-35.5); Mean Corpuscular Hemoglobin 28.6 pg (28.0-33.3); Mean Corpuscular Volume 87.1 fL (83.0-100.0); Monocytes % 8.3 %; Platelet Count 206 K/mcL (140-400); Red Blood Count 4.02 M/mcL (4.19-5.50); Red Cell Distribution Width 13.1 % (11.5-14.5); White Blood Count 4.7 K/mcL (4.3-11.1)
[2022-01-18 06:00] LABS: Eosinophils % 0.2 %; Lymphocytes # 0.9 K/mcL (0.6-4.6); Monocytes # 0.4 K/mcL (0.0-1.3); Neutrophils # 3.4 K/mcL (1.6-8.9)
[2022-01-18 06:17] LABS: BUN/Creatinine Ratio 10 (6-26); Blood Urea Nitrogen 7 mg/dL (6-20); Calcium 8.9 mg/dL (8.6-10.3); Carbon Dioxide 28 mEq/L (23-29); Chloride 106 mEq/L (98-107); Glucose 166 mg/dL (70-105); Magnesium 1.7 mg/dL (1.6-2.6); Osmolality,Calculated 290 (280-300); Phosphorous 1.6 mg/dL (2.7-4.5); Potassium 3.8 mEq/L (3.5-5.1); Sodium 139 mEq/L (136-145); Vancomycin,Trough 7 mcg/mL (5-10)
[2022-01-18] MEDS: Nicotine 14 MG PATCH.TD24 TD SCH (08:00)
[2022-01-18] MEDS: Piperacillin/Tazobactam 3.375 GM in 0.9 % Sodium Chloride Mini Bag 100 ML IVPB SCH ×3 (08:00→22:41)
[2022-01-18] MEDS: Gabapentin 300 MG CAPSULE PO SCH ×3 (08:00→22:41)
[2022-01-18] MEDS: *HR* OxyCODONE/APAP 5/325 TABLET PO PRN (18:10)
[2022-01-18] MEDS: Mirtazapine 15 MG TABLET PO SCH (20:52)
[2022-01-18] MEDS: Melatonin 3 MG TABLET PO PRN (22:41)
[2022-01-19] MEDS: *HR* OxyCODONE/APAP 5/325 TABLET PO PRN ×2 (02:15→12:19)
[2022-01-19] MEDS: *HR* Heparin 5,000 UNIT/ML VIAL SQ SCH (05:18)
[2022-01-19 07:25] VITALS: BP 145/90; PULSE 71; TEMP 97.5; O2SAT 99
[2022-01-19] MEDS: Piperacillin/Tazobactam 3.375 GM in 0.9 % Sodium Chloride Mini Bag 100 ML IVPB SCH (07:32)
[2022-01-19] MEDS: *HR* HYDROcodone/Acet 5/325 mg TABLET PO PRN (07:33)
[2022-01-19] MEDS: Gabapentin 300 MG CAPSULE PO SCH (07:34)
[2022-01-19] MEDS: Nicotine 14 MG PATCH.TD24 TD SCH (07:34)
== END 2022-01-19 13:56 | disposition home or self-care (01) | DRG 316 ==
LOC: EMEROOARM 14:38 → 4WAOSI 14:38 → SUATTDRO 21:00 → 4WAOSI 22:04
PROVIDERS: ADMIT Internal Medicine; ATTEND Internal Medicine

== ENCOUNTER 2022-01-20 00:15 | Observation (INO) ==
[2022-01-20] MEDS ORDERED: Morphine Sulfate 2 MG/ML SYRINGE IVP PRN (02:53)
[2022-01-20] MEDS ORDERED: Naloxone 0.4 MG/ML INJ IVP PRN (04:33)
[2022-01-20] MEDS ORDERED: Ketorolac 30 MG/ML VIAL IVP PRN (04:33)
[2022-01-20] MEDS ORDERED: Ondansetron 4 MG/2 ML VIAL IVP PRN (04:33)
[2022-01-20] MEDS ORDERED: Acetaminophen 325 MG TABLET PO PRN (04:33)
[2022-01-20 05:05] LABS: Alanine Aminotransferase 70 Units/L (7-52); Albumin 4.8 g/dL (3.5-5.7); Albumin/Globulin Ratio 1.1 (1.1-2.2); Alkaline Phosphatase 145 Units/L (34-104); Aspartate Amino Transferase 71 Units/L (13-39); BUN/Creatinine Ratio 10 (6-26); Bilirubin,Total 0.4 mg/dL (0.3-1.0); Blood Urea Nitrogen 8 mg/dL (6-20); Calcium 10.3 mg/dL (8.6-10.3); Carbon Dioxide 29 mEq/L (23-29); Chloride 103 mEq/L (98-107); Globulin 4.2 g/dL (2.4-3.5); Glucose 95 mg/dL (70-105); Osmolality,Calculated 290 (280-300); Potassium 3.3 mEq/L (3.5-5.1); Sodium 141 mEq/L (136-145)
[2022-01-20 05:23] LABS: Basophils % 0.6 %; Eosinophils # 0.1 K/mcL (0.0-0.6); Eosinophils % 0.9 %; Hematocrit 37.3 % (37.5-50.1); Hemoglobin 12.4 g/dL (12.9-16.9); Immature Granulocytes % 0.4 % (0-4); Lymphocytes # 1.4 K/mcL (0.6-4.6); Lymphocytes % 25.9 %; Mean Corpuscular HGB Conc 33.2 g/dL (31.6-35.5); Mean Corpuscular Volume 87.1 fL (83.0-100.0); Mean Platelet Volume 10.8 fL (9.4-12.4); Monocytes # 0.5 K/mcL (0.0-1.3); Monocytes % 8.6 %; Neutrophils # 3.5 K/mcL (1.6-8.9); Platelet Count 314 K/mcL (140-400); Red Blood Count 4.28 M/mcL (4.19-5.50); Red Cell Distribution Width 13.3 % (11.5-14.5); Segmented Neutrophils % 63.6 %; White Blood Count 5.5 K/mcL (4.3-11.1)
[2022-01-20] MEDS ORDERED: Potassium Chloride Elixir 20 MEQ/15 ML UDC PO ONE (06:05)
[2022-01-20 07:24] VITALS: TEMP 97.6; O2SAT 98
[2022-01-20] MEDS ORDERED: *HR* Buprenorphine HCl 8 MG TAB.SUBL SL SCH (09:00)
[2022-01-20] MEDS ORDERED: Morphine Sulfate 2 MG/ML SYRINGE IVP ONE (13:49)
[2022-01-20] MEDS ORDERED: *HR* OxyCODONE Immed Rel 5 MG TABLET PO ONE (13:53)
[2022-01-20 14:34] VITALS: BP 122/80; PULSE 91
== END 2022-01-20 14:43 | disposition home or self-care (01) ==
LOC: 4WAOSI 00:15 → EMEROOARM 00:15 → 4WAOSI 05:30
PROVIDERS: ADMIT Internal Medicine; ATTEND Internal Medicine